=== PATIENT | female | born 1995 | race Caucasian/White ===

== ENCOUNTER 2017-11-03 22:05 | Outpatient (CLI) | payer OTHER ==
[2017-11-03 22:40] VITALS: BP 120/72
== END 2017-11-03 22:35 | disposition home or self-care (01) ==
LOC: WFO 22:05 → FBP 22:08 → WFO 22:35
PROVIDERS: ATTEND Obstetrics & Gynecology
DX: O21.9 Vomiting of pregnancy, unspecified (principal); Z3A.19 19 weeks gestation of pregnancy

== ENCOUNTER 2017-11-03 22:38 | Emergency (ER) | payer OTHER ==
[2017-11-03] MEDS ORDERED: ONDANSETRON ODT 4 MG TABLET TL STA (22:58)
[2017-11-03 23:02] LABS: GLUCOSE, URINE (UA) NEGATIVE (NEGATIVE); KETONES,URINE (UA) >=80 mg/dL (NEGATIVE); LEUKOCYTE ESTERASE, URINE NEGATIVE (NEGATIVE); NITRITE,URINE NEGATIVE (NEGATIVE); OCCULT BLOOD,URINE NEGATIVE (NEGATIVE); PH,URINE 5.5 PH (5.0-7.5); PROTEIN,URINE TRACE mg/dL (NEGATIVE); UROBILINOGEN,URINE 0.2 (NORMAL) E.U./dL (NORMAL)
[2017-11-03 23:04] LABS: CLARITY,URINE CLEAR (CLEAR)
[2017-11-03 23:05] LABS: BILIRUBIN,URINE NEGATIVE (NEGATIVE); ICTOTEST,URINE NEGATIVE
[2017-11-03] MEDS ORDERED: SODIUM CHLORIDE 0.9% 1,000 ML IV ONE (23:08)
[2017-11-03] MEDS ORDERED: ONDANSETRON 4 MG/2 ML VIAL IVP STA (23:08)
--- NOTE | 2017-11-03 23:08 | ED Physician Documentation ---
PD HPI FEMALE - Stated complaint Stated Complaint: NAUSEA/VOMITING - 20WK OB - Chief complaint Chief Complaint: Abd Pain - History obtained from History obtained from: Patient, Family - History of Present Illness Timing - onset: Yesterday Timing - details: Gradual onset, Still present Associated symptoms: Abdominal pain Contributing factors: Similar symptoms before: No diagnosis Recently seen: Not recently seen - Additional information Additional information: Patient is a 22 year old female approximately 19-20 weeks by dates who is presenting to the emergency department for vomiting and mild abdominal pain. patient states that it started yesterday and she has had a hard time keeping anything down. Patient denies any change in diet, sick contacts or recent travel. patient was originally sent to OB and had a normal HR. Review of Systems Constitutional: denies: Fever, Chills Eyes: reports: Reviewed and negative Ears: reports: Reviewed and negative Nose: reports: Reviewed and negative Throat: reports: Reviewed and negative GI: reports: Abdominal Pain, Nausea, Vomiting. denies: Constipation, Diarrhea : denies: Dysuria, Frequency, Hesitancy Skin: reports: Reviewed and negative Musculoskeletal: reports: Reviewed and negative Neurologic: reports: Reviewed and negative Psychiatric: reports: Reviewed and negative Endocrine: reports: Reviewed and negative Immunocompromised: denies: Immunocompromised PD PAST MEDICAL HISTORY - Present Medications Home Medications: Ambulatory Orders Medication Instructions Recorded Confirmed Ondansetron Odt [Zofran] 4 mg TL Q6H PRN #14 tablet 11/04/17 - Allergies Allergies/Adverse Reactions: Allergies Allergy/AdvReac Type Severity Reaction Status Date / Time No Known Drug Allergies Allergy Verified 11/03/17 23:18 PD ED PE NORMAL - Vitals Vital signs reviewed: Yes - General General: Alert and oriented X 3, No acute distress - HEENT HEENT: Atraumatic - Cardiac Cardiac: RRR - Respiratory Respiratory: No respiratory distress - Abdomen Abdomen: Other (gravid uterus palpated) - Derm Derm: Normal color, Warm and dry - Extremities Extremities: No deformity - Neuro Neuro: Alert and oriented X 3, No motor deficit Eye Opening: Spontaneous PD ED PE EXPANDED - HEENT HEENT: Dry mucous membranes Results - Vitals Vitals: Vital Signs - 24 hr 11/03/17 11/03/17 22:44 23:56 Temperature 36.5 C Heart Rate 92 86 Respiratory 16 18 Rate Blood Pressure 121/76 110/64 O2 Saturation 100 97 Oxygen O2 Source Room air - Labs Labs: Laboratory Tests 11/03/17 22:53 Urine Color YELLOW Urine Clarity CLEAR Urine pH 5.5 Ur Specific [place] >=1.030 H Urine Protein TRACE Urine Glucose (UA) NEGATIVE Urine Ketones >=80 H Urine Occult Blood NEGATIVE Urine Nitrite NEGATIVE Urine Bilirubin NEGATIVE Urine Urobilinogen 0.2 (NORMAL) Ur Leukocyte Esterase NEGATIVE Ur Microscopic Review NOT INDICATED Urine Culture Comments NOT INDICATED PD MEDICAL DECISION MAKING - ED course Complexity details: reviewed old records, reviewed results, re-evaluated patient , considered differential, d/w patient, d/w family ED course: Patient was seen and examined at bedside. patient's urine was collected and was positive for ketones. Patient was treated with zofran and fluid bolus. Patient was able to tolerate PO and was stable for discharge with outpatient follow up. Departure - Departure Disposition: 01 Home, Self Care Clinical Impression: Dehydration, Gastroenteritis Condition: Good Instructions: ED Gastroenteritis Non Infec Follow-Up: Robbin Wall ARNP [Primary Care Provider] - As Needed Prescriptions: Ondansetron Odt [Zofran] 4 mg TL Q6H PRN #14 tablet PRN Reason: Nausea / Vomiting Comments: Your symptoms today are likely being caused by gastroenteritis. It is normally self limited meaning it should get better in the next few days. You should take the zofran as needed for nausea and make sure you stay well hydrated. You should follow up with your doctor if your symptoms don't improve. You may return to the emergency department at any time for new, worsening or uncontrollable symptoms.
[2017-11-04] MEDS ORDERED: ONDANSETRON ODT 4 MG Prepack 2 TL PRN (00:10)
[2017-11-04 00:36] VITALS: BP 114/84
== END 2017-11-04 00:35 | disposition home or self-care (01) ==
LOC: ED 22:38
DX: O99.612 Diseases of the digestive system complicating pregnancy, second trimester (principal); K52.9 Noninfective gastroenteritis and colitis, unspecified; O99.282 Endocrine, nutritional and metabolic diseases complicating pregnancy, second trimester; E86.0 Dehydration; Z3A.19 19 weeks gestation of pregnancy
CPT/HCPCS: 81001; 81003; 87086; 96361; 96374; 99283; 99284

== ENCOUNTER 2018-03-29 19:28 | Inpatient (IN) | payer OTHER ==
[2018-03-29 20:34] LABS: RUPTURE OF MEMBRANES PLUS POSITIVE (NEGATIVE)
[2018-03-29] MEDS ORDERED: SODIUM CHLORIDE FLUSH 0.9% 10 ML SYRINGE IVP PRN (20:54)
[2018-03-29] MEDS: SODIUM CHLORIDE FLUSH 0.9% 10 ML SYRINGE IVP SCH (21:30)
[2018-03-29 21:51] LABS: BASOPHILS % (AUTO) 0.2 %; EOSINOPHILS # (AUTO) 0.1 10^3/uL (0.0-0.7); EOSINOPHILS % (AUTO) 0.3 %; HGB - HEMOGLOBIN 11.1 g/dL (12.0-16.0); LYMPHOCYTES # (AUTO) 2.3 10^3/uL (1.5-3.5); LYMPHOCYTES % (AUTO) 13.3 %; MEAN CORPUSCULAR HEMOGLOBIN 25.1 pg (27.0-31.0); MEAN CORPUSCULAR HGB CONC 33.1 g/dL (32.0-36.0); MEAN CORPUSCULAR VOLUME 75.9 fL (81.0-99.0); MONOCYTES # (AUTO) 1.4 10^3/uL (0.0-1.0); MONOCYTES % (AUTO) 8.3 %; NEUTROPHILS # (AUTO) 13.7 10^3/uL (1.5-6.6); NEUTROPHILS % (AUTO) 77.9 %; PLT - PLATELET COUNT 237 10^3/uL (130-450); RED BLOOD COUNT 4.44 10^6/uL (4.20-5.40); WHITE BLOOD COUNT 17.5 x10^3/uL (4.8-10.8)
--- NOTE | 2018-03-29 21:51 | HISTORY & PHYSICAL EXAMINATION ---
Admit History - Instructions [place]/Slash: -Left hand click circles element as positive or present. -Right hand click slashes element as negative or not present. - Visit Reason Visit Reason: Membranes rupture (Pt SROM @ 1900. develpoed mild contractions. Positive ROM +.) - : 1 Parity: 0 Premature: 0 Ectopic: 0 : 0 Care: positive: [place] Risk/History: positive: None Complications This : positive: None Smoking Status: Never smoker - Mother's Labs Mother's Blood Type: positive: O Mother's RH: positive: Positive - Other Maternal History Other Maternal History: pt is a 22 YO EDC 03/29/2018, 40.0 weeks EGA Pt stated her OB care at 13 weeks at [facility] had 13 visits. her ob coarse has been uneventful. Blood type O+, GBS , Rhubella [facility] is on divert. Med Hx 0 Sx 0 NKMA Meds PNV Habits neg Social to ADN. Pe PEREOM Heart RRwithout M Lungs clear Abdomin gravid Cx 1.2/50%/2/VTX DTR +1 no clonus IMP: 22 yo , 40.0 weeks SROM Isabella q2-3 min mild, reactive strip Plan will await strong contraction, will start pit if necessary Epidural prn Meds/Allgy - Home Medications Home Medications: Ambulatory Orders Medication Instructions Recorded Confirmed Ondansetron Odt [Zofran] 4 mg TL Q6H PRN #14 tablet 11/04/17 - Allergies Allergies/Adverse Reactions: Allergies Allergy/AdvReac Type Severity Reaction Status Date / Time No Known Drug Allergies Allergy Verified 11/03/17 23:18 Physical - Abdominal Exam Vital Signs: Temp Pulse Resp BP Pulse Ox 37.3 C 96 16 120/77 100 03/29/18 19:45 03/29/18 19:45 03/29/18 19:45 03/29/18 19:45 03/29/18 19:45
[2018-03-29] MEDS: LACTATED RINGERS 1,000 ML IV SCH (23:50)
[2018-03-30] MEDS ORDERED: PROMETHAZINE 25 MG/1 ML VIAL IM STA (01:03)
[2018-03-30] MEDS ORDERED: MORPHINE 10 MG/ML VIAL IM STA (01:03)
[2018-03-30] MEDS: LACTATED RINGERS 1,000 ML IV SCH ×3 (06:26→18:10)
[2018-03-30] MEDS ORDERED: fent/BUPIV 2 MCG/0.125% 250 ML EP ONE (08:27)
--- NOTE | 2018-03-30 08:28 | PROVIDER PROGRESS NOTE ---
Labor Progress Note - Uterine Monitoring Contraction Frequency (min/apart): 3-4 Contraction Intensity: positive: Moderate to strong Uterine Resting Tone: positive: Soft - Monitoring Monitor Mode: positive: External ultrasound Heart Rate Baseline: 150 Heart Rate Variability: positive: Moderate (6-25 bmp) Accelerations: positive: Present, 15x15 Decelerations: positive: Early Strip Review: positive: Category I - Vaginal Exam Dilation (in cm): 5 Effacement (%): 100% Station: -3 Cervical Position: Midposition - Labor Progress Note Labor Progress Note/Additional Text: Pt was rested with Morphine Strip Cat 1 Pt and brother weighed 9 and 10 lb FOB weighed 9 lb. Pt just informed us that she had an US for EFW Plan Epidural Pit EFW
[2018-03-30] MEDS: SODIUM CHLORIDE FLUSH 0.9% 10 ML SYRINGE IVP SCH (08:58)
[2018-03-30] MEDS ORDERED: NALOXONE 0.4 MG/ML VIAL IVP PRN (09:15)
[2018-03-30] MEDS ORDERED: fent/BUPIV 2 MCG/0.125% 250 ML EP PRN (09:15)
[2018-03-30] MEDS ORDERED: ePHEDrine 50 MG/ML VIAL IVP PRN (09:15)
[2018-03-30] MEDS ORDERED: diphenhydrAMINE INJ 50 MG/ML VIAL IVP PRN (09:15)
[2018-03-30] MEDS ORDERED: ONDANSETRON 4 MG/2 ML VIAL IVP PRN (09:15)
[2018-03-30] MEDS ORDERED: LACTATED RINGERS 500 ML IV ONE (09:15)
[2018-03-30] MEDS ORDERED: METOCLOPRAMIDE 10 MG/2 ML VIAL IVP PRN (09:15)
[2018-03-30] MEDS ORDERED: NALBUPHINE 10 MG/ML AMP IVP PRN (09:15)
--- NOTE | 2018-03-30 12:50 | PROVIDER PROGRESS NOTE ---
Labor Progress Note - Uterine Monitoring Uterine Monitoring Mode: positive: External toco Contraction Frequency (min/apart): 3-4 Contraction Intensity: positive: Strong Uterine Resting Tone: positive: Soft - Monitoring Monitor Mode: positive: External ultrasound Heart Rate Variability: positive: Moderate (6-25 bmp) Accelerations: positive: Present, 15x15 Decelerations: positive: None Strip Review: positive: Category I - Vaginal Exam Dilation (in cm): 7 cm Effacement (%): 100% Station: Ballotable Cervical Position: Midposition (head is -4 vertex, bulging forbag. arenas drained 50 ml.) - Labor Progress Note Labor Progress Note/Additional Text: US from 03/24/2018 EFW 8lb 12 oz. Cervix dilating but head not descending. reviewed strip, Exam, US with Pt and family. will start pitocin. Cannot rupture as head is to high.
[2018-03-30] MEDS: OXYTOCIN/SODIUM CHLORIDE 500 ML IV SCH (13:17)
[2018-03-30] MEDS ORDERED: LIDOCAINE-MPF 1% 5 ML VIAL ONE (15:01)
--- NOTE | 2018-03-30 16:39 | PROVIDER PROGRESS NOTE ---
Labor Progress Note - Uterine Monitoring Uterine Monitoring Mode: positive: External toco Contraction Frequency (min/apart): 3 Contraction Intensity: positive: Strong Uterine Resting Tone: positive: Soft - Monitoring Monitor Mode: positive: External ultrasound Heart Rate Baseline: 130's Heart Rate Variability: positive: Moderate (6-25 bmp) Accelerations: positive: Present, 15x15 Decelerations: positive: None Strip Review: positive: Category I - Vaginal Exam Dilation (in cm): 8 Effacement (%): 100% Station: Ballotable (-4) Cervical Position: Midposition - Labor Progress Note Labor Progress Note/Additional Text: Pt SROM during Exam. Head still not descending possible contracted inlet vs PO vs Macrosomia reassess at 1800
[2018-03-30] MEDS ORDERED: CITRIC ACID/SODIUM CITRATE 15 ML UDC PO ONE (18:13)
--- NOTE | 2018-03-30 18:42 | PROVIDER PROGRESS NOTE ---
Labor Progress Note - Uterine Monitoring Uterine Monitoring Mode: positive: External toco Contraction Frequency (min/apart): 2 Contraction Intensity: positive: Strong - Monitoring Monitor Mode: positive: External ultrasound Heart Rate Baseline: 135 Heart Rate Variability: positive: Moderate (6-25 bmp) Accelerations: positive: Present, 15x15 Decelerations: positive: None Strip Review: positive: Category I - Vaginal Exam Dilation (in cm): 8 Effacement (%): 100% Station: Ballotable (Head not decended in the the inlet-4) Cervical Position: Posterior - Labor Progress Note Labor Progress Note/Additional Text: Head has not descended at all. will proceed with PLTC/S R&B QAA.
[2018-03-30] MEDS ORDERED: LACTATED RINGERS 1,000 ML IV ONE ×3 (19:08→20:23)
[2018-03-30] MEDS ORDERED: LIDOCAINE 1%-EPI 1:100000 30 ML MDV ONE (19:38)
[2018-03-30] MEDS ORDERED: METHYLERGONOVINE 0.2 MG/ML AMP IM ONE (19:55)
[2018-03-30] MEDS ORDERED: ceFAZolin 1 GM VIAL IV ONE (20:45)
[2018-03-30] MEDS ORDERED: PROPOFOL 200 MG/20 ML VIAL IVP ONE (20:45)
[2018-03-30] MEDS ORDERED: LIDOCAINE-MPF 2% 5 ML VIAL IM ONE (20:45)
[2018-03-30] MEDS ORDERED: ePHEDrine 50 MG/ML VIAL IVP ONE (20:45)
[2018-03-30] MEDS ORDERED: ACETAMINOPHEN 1,000 MG/100 ML 100 ML IV ONE (20:45)
[2018-03-30] MEDS ORDERED: KETOROLAC 30 MG/ML VIAL IVP ONE (20:45)
[2018-03-30] MEDS ORDERED: PHENYLEPHRINE 50 MG/5 ML VIAL IV ONE (20:45)
[2018-03-30] MEDS ORDERED: KETAMINE 500 MG/10 ML VIAL IVP ONE (20:45)
--- NOTE | 2018-03-30 21:05 | OPERATIVE REPORT ---
Operative Report - General Admit Date: 03/29/18 Procedure Date: 03/30/18 Planned Procedure: PLTC/S Pre-Op Diagnosis: 40.1 wks, Arrest of descent Procedure Performed: PLTC/S Post Op Diagnosis: LOP, Arrest of Descent - Procedure Note Primary Surgeon: Shahbaz Hernandez MD Secondary Surgeon: Audelia Osman Anesthesia Provider: Bola Eaton CRNA Anesthesia Technique: Epidural, Local, Moderate sedation Pathology: Placenta IV Fluids (mL): 2,000 Estimated Blood Loss (mL): 1,600
--- NOTE | 2018-03-30 21:10 | DELIVERY NOTE ---
Delivery Note - Labor Labor: positive: Spontaneous, Augmented by oxytocin - Delivery Method Infant Delivery Method: positive: Primary - Presentation Presentation: positive: Vertex, LOP - left occiput posterior - Nuchal Cord Nuchal Cord: positive: Present (nucal times 1) - Anesthetic Anesthetic Type: - Amniotic Fluid Description Amniotic Fluid Description: positive: Thick meconium - Delivery Outcome Delivery Outcome: positive: Livebirth - [place]: positive: Bulb syringe sex: positive: Female - Cord Cord: positive: 3 vessels - Placenta Placenta: positive: Intact, Manual removal - Estimated Blood Loss Estimated Blood Loss (in cc): 1,600 - Post Delivery Events Post Delivery Events: positive: Unplanned - Delivery Comments (Free Text/Narrative) Delivery Comments (Free Text/Narrative): Live Female, wt 9lb 8oz, LOP Apgars 9/9
[2018-03-30] MEDS ORDERED: SODIUM CHLORIDE FLUSH 0.9% 10 ML SYRINGE IVP PRN (21:18)
[2018-03-30] MEDS ORDERED: diphenhydrAMINE 25 MG CAPSULE PO PRN (21:18)
[2018-03-30] MEDS ORDERED: METHYLERGONOVINE 0.2 MG/ML AMP PO SCH (22:00)
[2018-03-30] MEDS: oxyCODONE 5 MG TABLET PO PRN (22:06)
[2018-03-31 00:01] LABS: BASOPHILS # (AUTO) 0.1 10^3/uL (0.0-0.1); BASOPHILS % (AUTO) 0.5 %; HGB - HEMOGLOBIN 9.1 g/dL (12.0-16.0); LYMPHOCYTES % (AUTO) 5.8 %; MEAN CORPUSCULAR HEMOGLOBIN 24.9 pg (27.0-31.0); MEAN CORPUSCULAR HGB CONC 32.5 g/dL (32.0-36.0); MEAN CORPUSCULAR VOLUME 76.4 fL (81.0-99.0); MEAN PLATELET VOLUME 8.7 fL (7.9-10.8); MONOCYTES # (AUTO) 0.7 10^3/uL (0.0-1.0); MONOCYTES % (AUTO) 3.7 %; NEUTROPHILS # (AUTO) 16.3 10^3/uL (1.5-6.6); PLT - PLATELET COUNT 185 10^3/uL (130-450); RED BLOOD COUNT 3.67 10^6/uL (4.20-5.40); RED CELL DISTRIBUTION WIDTH 15.3 % (12.0-15.0); WHITE BLOOD COUNT 18.1 x10^3/uL (4.8-10.8)
[2018-03-31] MEDS: SODIUM CHLORIDE FLUSH 0.9% 10 ML SYRINGE IVP SCH ×7 (01:03→17:05)
[2018-03-31] MEDS: ACETAMINOPHEN 500 MG TABLET PO SCH ×3 (01:03→12:36)
[2018-03-31] MEDS: KETOROLAC 30 MG/ML VIAL IV SCH ×3 (01:03→10:39)
[2018-03-31] MEDS: LACTATED RINGERS 1,000 ML IV SCH ×2 (01:04→08:36)
[2018-03-31] MEDS: SIMETHICONE CHEW 80 MG TABLET PO SCH ×4 (01:04→17:05)
--- NOTE | 2018-03-31 01:47 | OPERATIVE REPORT ---
DATE OF SERVICE: 03/30/2018 Physician: Shahbaz Hernandez MD PREOPERATIVE DIAGNOSES 1. 40.1 weeks. 2. Arrest of descent. 3. Suspected macrosomia. POSTOPERATIVE DIAGNOSES 1. 40.1 weeks. 2. Persistent left occiput posterior. 3. Live female infant, weight 9 pounds 8 ounces, Apgars 9 and 9. PROCEDURE PERFORMED: Primary low transverse section. SURGEON: Shahbaz Hernandez MD SCIENTIFIC MANAGER: Audelia Mccollum, certified nurse seo team lead. ANESTHESIA: Epidural with local by Bola Eaton CRNA. ESTIMATED BLOOD LOSS: 1600 mL. IV FLUIDS: 1200 mL. FINDINGS: Live female , Apgars 9 and 9, weighing 9 pounds 8 ounces, thick meconium fluid. DESCRIPTION OF PROCEDURE: Following adequate epidural anesthesia, the patient was placed in the supine position with a roll under the right hip. At that point, she was having some difficulty with analgesia. For that reason, she was set up and was planned to attempt a spinal; however, she became lightheaded and at that point, it appeared as though her epidural was working better. She was placed in a supine position with a roll under the right hip. A Riddle catheter had already been placed. Timeout was performed in which the patient was identified as well as concerns reviewed. Local anesthesia with 1% Xylocaine with a 25-gauge needle was used along the incision track. At this point, a #10 blade was used to incise the incision and a Pfannenstiel incision was carried down through the subcutaneous tissue. The fascia was incised transversely and the incision was carried laterally with Scott scissors. The rectus was then split along the midline. Peritoneum was entered with Metzenbaum scissors. The incision was carried superiorly and inferiorly. A bladder retractor was placed and then the peritoneum was opened with Metzenbaum scissors. Care was taken to stay high enough as to avoid the cervical area. The uterus was scored with a #10 blade and then amniotic fluid was encountered. Roughly 1000 mL was sucked at this time. Bandage scissors were used to carry the incision laterally. At this point, the head was lifted out of the pelvis. There was evidence of a nuchal cord, which was reduced. The oral and nasopharynx were bulb suctioned. Following this, the remainder of the was delivered without difficulty. The cord was clamped doubly and then divided using Scott scissors. Baby was handed to the record press supervisor that was standing by. Cord blood samples were obtained. At this point, the placenta was manually delivered. The lower portion of the incision was grasped with ring forceps. There was some bleeding coming from the right side of the incision where the incision appeared to hockey stick down. The placenta was manually delivered and then the uterus was exteriorized , wrapped in a moist lap and cleansed in the internal portion with a dry lap. The incision was closed utilizing a running locking suture of 0 Vicryl. The incision was then imbricated with 0 Vicryl. There was some bleeding at the incision site. This was treated with [id number]. There was some difficulty with atony, so the patient received 0.2 mg of Methergine IM. The cul -de-sac was irrigated. There was some difficulty with pain control, so Anesthesia gave the patient ketamine. The uterus was delivered back in the abdominal cavity. The gutters were irrigated. The incision was inspected for bleeding, none was noted. The peritoneum was closed utilizing 2-0 Vicryl. The rectus fascia was closed using looped PDS in a running suture. The muscle was previously inspected for bleeding, none was noted. Subcutaneous tissue showed no bleeding, so the incision itself was closed using 4-0 Monocryl subcuticular. A wound VAC was then placed over this. The area appeared to be dry. The uterus was expressed of roughly 400 mL of blood, and the blood loss was then calculated roughly 1600 mL. Amniotic fluid was also subtracted to get a more accurate count. The patient tolerated the procedure well and was taken to recovery in stable condition. Sponge and needle counts were correct. TD: 03/30/2018 21:27 MTDD
[2018-03-31] MEDS ORDERED: METHYLERGONOVINE 0.2 MG/ML AMP IM SCH (04:00)
[2018-03-31 06:59] LABS: HGB - HEMOGLOBIN 8.8 g/dL (12.0-16.0); MEAN CORPUSCULAR HEMOGLOBIN 25.1 pg (27.0-31.0); MEAN CORPUSCULAR HGB CONC 32.8 g/dL (32.0-36.0); MEAN CORPUSCULAR VOLUME 76.4 fL (81.0-99.0); MEAN PLATELET VOLUME 9.1 fL (7.9-10.8); RED BLOOD COUNT 3.49 10^6/uL (4.20-5.40); RED CELL DISTRIBUTION WIDTH 15.2 % (12.0-15.0); WHITE BLOOD COUNT 16.5 x10^3/uL (4.8-10.8)
--- NOTE | 2018-03-31 08:41 | PROVIDER PROGRESS NOTE ---
Subjective - General Admit Date: 03/29/18 Procedure Date: 03/30/18 Post Op Days: 1 Procedure Performed: PLTC/S - Review of Systems Wound/Incisions: positive: Other (WoundVac working) General: positive: No symptoms (Pain 7/10, brest feeding, no flatus) HEENT: positive: No symptoms Pulmonary: positive: No symptoms Cardiovascular: positive: No symptoms Gastrointestinal: positive: No symptoms. negative: Nausea, Vomiting, Flatus Genitourinary: positive: No symptoms (arenas draining) Objective - Patient Data Reviewed Vital Signs: Yes Vital Signs: Vital Signs x48h Temp Pulse Resp BP Pulse Ox 03/31/18 08:30 36.8 C 82 19 114/74 99 03/31/18 04:24 36.8 C 84 16 108/72 98 Weight: Weight 03/29/18 03/30/18 03/31/18 23:59 23:59 23:59 Weight (kg) 95.254 kg Intake & Output: Intake and Output Totals x24h 03/29/18 03/30/18 03/31/18 23:59 23:59 23:59 Intake Total 2375.3 1244.7 Output Total 200 2825 Balance 2175.3 -1580.3 - Lab Results Lab Results: 03/31/18 06:10 Other Lab Results: Lab Results x24hrs 03/31/18 03/30/18 03/29/18 Range/Units 06:10 23:54 22:30 WBC 16.5 H 18.1 H (4.8-10.8) x10^3/uL RBC 3.49 L 3.67 L (4.20-5.40) 10^6/uL Hgb 8.8 L 9.1 L (12.0-16.0) g/dL Hct 26.7 L 28.0 L (37.0-47.0) % MCV 76.4 L 76.4 L (81.0-99.0) fL MCH 25.1 L 24.9 L (27.0-31.0) pg MCHC 32.8 32.5 (32.0-36.0) g/dL RDW 15.2 H 15.3 H (12.0-15.0) % Plt Count 183 185 (130-450) 10^3/uL MPV 9.1 8.7 (7.9-10.8) fL Neut # (Auto) 16.3 H (1.5-6.6) 10^3/uL Lymph # (Auto) 1.0 L (1.5-3.5) 10^3/uL [place] # (Auto) 0.7 (0.0-1.0) 10^3/uL Eos # (Auto) 0.0 (0.0-0.7) 10^3/uL Baso # (Auto) 0.1 (0.0-0.1) 10^3/uL Absolute Nucleated RBC 0.00 x10^3/uL Nucleated RBC % 0.0 /100WBC Blood Type Blood Type Recheck O POSITIVE Antibody Screen Crossmatch IS Only 03/29/18 Range/Units 21:48 WBC (4.8-10.8) x10^3/uL RBC (4.20-5.40) 10^6/uL Hgb (12.0-16.0) g/dL Hct (37.0-47.0) % MCV (81.0-99.0) fL MCH (27.0-31.0) pg MCHC (32.0-36.0) g/dL RDW (12.0-15.0) % Plt Count (130-450) 10^3/uL MPV (7.9-10.8) fL Neut # (Auto) (1.5-6.6) 10^3/uL Lymph # (Auto) (1.5-3.5) 10^3/uL [place] # (Auto) (0.0-1.0) 10^3/uL Eos # (Auto) (0.0-0.7) 10^3/uL Baso # (Auto) (0.0-0.1) 10^3/uL Absolute Nucleated RBC x10^3/uL Nucleated RBC % /100WBC Blood Type O POSITIVE Blood Type Recheck Antibody Screen NEGATIVE Crossmatch IS Only See Detail - Current Medications Current Medications: Current Medications Generic Name Dose Route Start Last Admin Trade Name Freq PRN Reason Stop Dose Admin Acetaminophen 1,000 mg 03/30/18 22:00 03/31/18 04:27 Tylenol PO 1,000 mg Q8H SERENITY Administration Oxytocin/Sodium Chloride 500 mls @ 1 mls/hr 03/30/18 13:00 03/31/18 04:52 Pitocin/Sodium Chloride IV Infused TITR [facility] Titration Protocol 1 MILLIUNIT/MIN Lactated Ringer's 1,000 mls @ 100 mls/hr 03/30/18 22:00 03/31/18 08:36 Lr IV Not Given .Q10H SERENITY Ketorolac Tromethamine 30 mg 03/30/18 22:00 03/31/18 04:26 Toradol Inj (30mg) IV 03/31/18 16:01 30 mg Q6H SERENITY Administration Methylergonovine Maleate 0.2 mg 03/31/18 04:00 03/31/18 04:26 Methergine Inj IM 03/31/18 20:01 0.2 mg Q8H SERENITY Administration Oxycodone HCl 5 mg 03/30/18 21:18 03/30/18 22:06 Roxicodone PO 5 mg Q4HR PRN Administration PAIN Simethicone 80 mg 03/30/18 22:00 03/31/18 01:04 Mylicon PO Not Given TID SERENITY Sodium Chloride 10 ml 03/30/18 01:00 03/31/18 08:36 Normal Saline Flush 0.9% IVP Not Given 0100,0900,1700 SERENITY Sodium Chloride 10 ml 03/31/18 01:00 03/31/18 08:36 Normal Saline Flush 0.9% IVP Not Given 0100,0900,1700 [facility] - Physical Exam Wound/Incisions: positive: Dressing dry and intact (wound vac functioning) General Appearance: positive: No acute distress (smiling), Alert Respiratory: positive: Chest non-tender, No respiratory distress, Breath sounds nml Cardiovascular: positive: Regular rate & rhythm, No murmur, No gallop Abdomen: positive: Nml bowel sounds, Tenderness, Mass (u.) Back: negative: CVA tenderness (R), CVA tenderness (L) Skin: positive: Color nml, No rash, Warm, Dry Extremities: negative: Calf tenderness, Gwen's sign/cords Neurologic/Psychiatric: positive: Oriented x3, CN's nml (2-12) Impression/Plan - Problem List Problem List: POD # 1 progressing. pain management pt not taking her oxycodone Remove arenas pt encouraged to take her oxy.
[2018-03-31] MEDS: DOCUSATE SODIUM 100 MG CAPSULE PO SCH ×2 (08:43→20:36)
[2018-03-31] MEDS: oxyCODONE 5 MG TABLET PO PRN ×4 (08:43→20:36)
[2018-03-31] MEDS ORDERED: CELECOXIB 100 MG CAPSULE PO SCH (09:00)
--- NOTE | 2018-03-31 12:24 | PROVIDER PROGRESS NOTE ---
Subjective - Prog Note Date Prog Note Date: 03/31/18 Prog Note Time: 12:20 - Subjective Pt reports feeling: Improved Subjective: Sitting in the chair, eating regular diet. holding baby on the couch. Feeling much better after taking oxycodone. No nausea or vomiting. Wound vac working well. Objective - Vital Signs/Intake & Output Reviewed Vital Signs: Yes Vital Signs: Vital Signs x48h Temp Pulse Resp BP Pulse Ox 03/31/18 08:30 98.2 F 82 19 114/74 99 03/31/18 04:24 98.2 F 84 16 108/72 98 Intake & Output: Intake & Output 03/28/18 03/29/18 03/30/18 03/31/18 23:59 23:59 23:59 23:59 Intake Total 2375.3 1244.7 Output Total 200 3275 Balance 2175.3 -2030.3 - Objective General Appearance: positive: No acute distress Eyes Bilateral: positive: Normal inspection Neurologic/Psychiatric: positive: Oriented x3 - Lab Results Fish Bones: 03/31/18 06:10 Other Labs: Lab Results x24hrs 03/31/18 03/30/18 03/29/18 Range/Units 06:10 23:54 22:30 WBC 16.5 H 18.1 H (4.8-10.8) x10^3/uL RBC 3.49 L 3.67 L (4.20-5.40) 10^6/uL Hgb 8.8 L 9.1 L (12.0-16.0) g/dL Hct 26.7 L 28.0 L (37.0-47.0) % MCV 76.4 L 76.4 L (81.0-99.0) fL MCH 25.1 L 24.9 L (27.0-31.0) pg MCHC 32.8 32.5 (32.0-36.0) g/dL RDW 15.2 H 15.3 H (12.0-15.0) % Plt Count 183 185 (130-450) 10^3/uL MPV 9.1 8.7 (7.9-10.8) fL Neut # (Auto) 16.3 H (1.5-6.6) 10^3/uL Lymph # (Auto) 1.0 L (1.5-3.5) 10^3/uL [place] # (Auto) 0.7 (0.0-1.0) 10^3/uL Eos # (Auto) 0.0 (0.0-0.7) 10^3/uL Baso # (Auto) 0.1 (0.0-0.1) 10^3/uL Absolute Nucleated RBC 0.00 x10^3/uL Nucleated RBC % 0.0 /100WBC Blood Type Blood Type Recheck O POSITIVE Antibody Screen Crossmatch IS Only 03/29/18 Range/Units 21:48 WBC (4.8-10.8) x10^3/uL RBC (4.20-5.40) 10^6/uL Hgb (12.0-16.0) g/dL Hct (37.0-47.0) % MCV (81.0-99.0) fL MCH (27.0-31.0) pg MCHC (32.0-36.0) g/dL RDW (12.0-15.0) % Plt Count (130-450) 10^3/uL MPV (7.9-10.8) fL Neut # (Auto) (1.5-6.6) 10^3/uL Lymph # (Auto) (1.5-3.5) 10^3/uL [place] # (Auto) (0.0-1.0) 10^3/uL Eos # (Auto) (0.0-0.7) 10^3/uL Baso # (Auto) (0.0-0.1) 10^3/uL Absolute Nucleated RBC x10^3/uL Nucleated RBC % /100WBC Blood Type O POSITIVE Blood Type Recheck Antibody Screen NEGATIVE Crossmatch IS Only See Detail Assessment/Plan - Problem List (1) delivery delivered Impression: 22 yo S/p primary delivery 03/30/2018, POD #1 Improved pain control S/p primary PPH due to uterine atony, resolved Will convert IV toradol to Celebrex to maximize pain control and healing IV iron transfusion Routine care Hopefully home tomorrow, or Tuesday at the latest
[2018-03-31] MEDS: CHERRY SYRUP 10 ML UDC PO SCH ×2 (12:35→20:36)
[2018-03-31] MEDS: METHYLERGONOVINE 0.2 MG/ML AMP PO SCH ×2 (12:35→20:36)
[2018-03-31] MEDS ORDERED: FERRIC GLUCONATE 125 MG in SODIUM CHLORIDE 0.9% 100ML 100 ML IV ONE (13:00)
[2018-03-31] MEDS ORDERED: SODIUM CHLORIDE 0.9% MINIBAG 100 ML IV ONE (13:44)
[2018-03-31] MEDS: OXYTOCIN/SODIUM CHLORIDE 500 ML IV SCH (16:36)
[2018-03-31] MEDS: CELECOXIB 100 MG CAPSULE PO SCH ×2 (17:04→20:35)
[2018-04-01] MEDS: ACETAMINOPHEN 500 MG TABLET PO SCH ×3 (02:20→18:03)
[2018-04-01] MEDS: oxyCODONE 5 MG TABLET PO PRN ×3 (02:21→21:05)
[2018-04-01] MEDS: DOCUSATE SODIUM 100 MG CAPSULE PO SCH ×2 (08:47→21:06)
[2018-04-01] MEDS: CELECOXIB 100 MG CAPSULE PO SCH ×2 (08:47→21:06)
[2018-04-01] MEDS: SIMETHICONE CHEW 80 MG TABLET PO SCH ×3 (08:47→18:03)
--- NOTE | 2018-04-01 13:57 | PROVIDER PROGRESS NOTE ---
Subjective - Prog Note Date Prog Note Date: 04/01/18 Prog Note Time: 13:55 - Subjective Pt reports feeling: Improved Subjective: Patient standing and changing the baby's diaper. Family and present in the room; all very loving and excited. Shira has pain in her epidural site. Otherwise doing well and denies fevers, chills, nausea, vomiting or abdominal pain. Eating a regular diet. Urinating without difficulty. Desires to go home tomorrow. Wound vac not beeping and working well. Objective - Vital Signs/Intake & Output Vital Signs: Vital Signs x48h Temp Pulse Resp BP Pulse Ox 04/01/18 12:45 98.2 F 86 16 112/72 99 04/01/18 08:00 98.1 F 86 16 110/73 99 Intake & Output: Intake & Output 03/29/18 03/30/18 03/31/18 04/01/18 23:59 23:59 23:59 23:59 Intake Total 2375.3 1354.7 Output Total 200 4525 600 Balance 2175.3 -3170.3 -600 - Objective General Appearance: positive: No acute distress Eyes Bilateral: positive: Normal inspection Abdomen: positive: Non-tender (Wound vac intact and working well) Neurologic/Psychiatric: positive: Oriented x3 - Lab Results Fish Bones: 03/31/18 06:10 Assessment/Plan - Problem List (1) delivery delivered Impression: 22 yo S/p CD 03/30/2018, POD#2 Normal recovery PPH secondary to atony, S/p iron transfusion 03/31/2018. Pain from epidural site-- continue Celebrex and tylenol. PRN muscle relaxant. Anticipate discharge to home tomorrow. Rx for motrin, colace, acetaminophen and oxycodone for home care. Discharge summary dictated: [id number]
[2018-04-01] MEDS: BACLOFEN 10 MG TABLET PO SCH (21:56)
[2018-04-02] MEDS: ACETAMINOPHEN 500 MG TABLET PO SCH (02:56)
--- NOTE | 2018-04-02 07:53 | DISCHARGE SUMMARY ---
Physician: Polly Christy DO FACOG DATE OF ADMISSION: 03/29/2018 DATE OF DISCHARGE: 04/02/2018 DIAGNOSES ON ADMISSION 1. A 22-year-old G1, P0 with a 40-week 0-day intrauterine . 2. Spontaneous rupture of membranes. DIAGNOSES ON DISCHARGE 1. A 22-year-old G1, P1-0-0-1, status post primary delivery on 2017 secondary to failure to descend secondary to left occiput posterior presentation. 2. Status post hemorrhage secondary to uterine atony. 3. Status post iron transfusion 03/31/2018. 4. Stable condition. BRIEF HISTORY: The patient is a patient of [facility] who has had her care there. She presented with complaints of spontaneous rupture of membranes about 1900 hours. [facility] was on divert, so patient presented to [facility]. On examination, patient was found to be ruptured, with a cervical examination of 1-2 cm dilation, 50% effacement, and -2 station. She was maria eugenia every 2-3 minutes but eventually needed Pitocin for augmentation. The patient later received an epidural for pain control. Despite adequate labor, patient's baby did not descend into the inlet at -4 station. Her dilation at that point in time was 8 cm, and effacement was 100%. The patient underwent a primary delivery and had a viable female weighing 9 pounds 8 ounces and Apgars of 9 and 9 at one and five minutes , respectively. She was in LOP presentation. EBL was 1600 mL. Please see the operative report for more details. The patient's postoperative course was significant for a drop in her H and H. Her admission CBC revealed a white count of 17.5, H and H of 11.1 and 33.7, and platelets of 237. On 03/30/2018, CBC on the same day after surgery showed a white count of 18.1, H and H of 9.1 and 28.0, platelets of 185. Postoperative day #1 H and H on 03/31/2018 showed a white count of 16.5, H and H of 8.8 and 26.7, and platelets of 183. The patient then received an iron transfusion to help with her iron deficiency anemia. Her MCV was decreased at 75-76. The patient otherwise did well after her delivery. She is ambulating and tolerating a regular diet. She is urinating without difficulty, and her pain is controlled with oral medications including Celebrex, Tylenol, and oxycodone. The patient is experiencing a little bit of back pain secondary to the epidural. Her wound VAC is intact and working well. She will be discharged to home on postoperative day 3, on 04/02/2018. The patient will be discharged to home with prescriptions for Colace, Tylenol, Motrin, and oxycodone. She will be expected to follow up with us at [facility] next week for removal of her wound VAC and then in another week for incision checkup. The patient is to call should she have any worsening fevers, chills, abdominal pain, or worsening vaginal bleeding. TD: 04/01/2018 14:17 MTDViet
[2018-04-02] MEDS: DOCUSATE SODIUM 100 MG CAPSULE PO SCH (09:36)
[2018-04-02] MEDS: BACLOFEN 10 MG TABLET PO SCH (09:36)
[2018-04-02] MEDS: SIMETHICONE CHEW 80 MG TABLET PO SCH (09:36)
[2018-04-02] MEDS: CELECOXIB 100 MG CAPSULE PO SCH (09:36)
[2018-04-02] MEDS: oxyCODONE 5 MG TABLET PO PRN (09:51)
--- NOTE | 2018-04-02 10:53 | PROVIDER PROGRESS NOTE ---
Subjective - Prog Note Date Prog Note Date: 04/02/18 Prog Note Time: 10:50 - Subjective Pt reports feeling: Improved Subjective: Patient doing well. Ambulating and tolerating a regular diet. Decreasing vaginal bleeding and urinating without difficulty. Breast feeding going well. Desires to go home. Objective - Vital Signs/Intake & Output Reviewed Vital Signs: Yes Vital Signs: Vital Signs x48h Temp Pulse Resp BP BP Pulse Ox 04/02/18 08:10 97.9 F 82 19 112/67 97 04/02/18 04:55 97.9 F 77 16 109/68 100 Intake & Output: Intake & Output 03/30/18 03/31/18 04/01/18 04/02/18 23:59 23:59 23:59 23:59 Intake Total 2375.3 1354.7 140 600 Output Total 200 4525 600 1 Balance 2175.3 -3170.3 -460 599 - Objective General Appearance: positive: No acute distress Eyes Bilateral: positive: Normal inspection Abdomen: positive: Non-tender (Wound vac intact and working well.) Extremities: positive: Non-tender Neurologic/Psychiatric: positive: Oriented x3 - Lab Results Fish Bones: 03/31/18 06:10 Other Labs: Lab Results x24hrs 03/29/18 Range/Units 21:48 Crossmatch IS Only See Detail Assessment/Plan - Problem List (1) delivery delivered Impression: 22 yo S/p primary CD, POD #3 Normal recovery Iron deficiency anemia and PPH, S/p iron transfusion Discharge to home Follow up next week for Prevena wound vac removal Rx for motrin, tylenol, colace and oxycodone OK for showering but no baths Increase ambulation as tolerated Call for worsening fevers, chills, abdominal pain or vaginal bleeding Discharge Plan Disposition: 01 Home, Self Care Condition: Good Diet: Regular Activity Restrictions: Activity as Tolerated (No lifting > 10 lbs) Shower Restrictions: Yes Driving Restrictions: Yes (No driving) Weight Bearing: Full Weight No Smoking: If you smoke, Please STOP! Call for help. Follow-up with: Robbin Wall ARNP [Primary Care Provider] -
[2018-04-02 11:35] VITALS: BP 126/78
--- NOTE | 2018-04-02 14:53 | Labor Flowsheet ---
Labor Flowsheet Datetime Report Generated by CPN: 04/02/2018 14:53 Datetime: 03/30/2018 19:03 UTERINE ACTIVITY Monitor Mode: External Frequency (min): 2-3 Quality: Strong Duration (sec): 30-60 Pattern: Normal: <= 5 Contractions in 10 Minutes Resting Tone (Palpate): Relaxed ASSESSMENT A Monitor Mode: External US FHR Baseline Rate : 140 FHR Baseline Changes: No Baseline Change Variability: Moderate 6-25 bpm Accelerations: 15X15 Decelerations: None Category: Category I Oxygen Method: Room Air Patient Care Comments: pt to OR for Primary . Datetime: 03/30/2018 18:59 VITAL SIGNS NBP Sys/Becca/Mean (mmHg): 133 : 87 : 97 Pulse: 97 LaborFlag: Labor Datetime: 03/30/2018 18:54 SpO2 (%): 100 Datetime: 03/30/2018 18:45 Respirations: 15 Temperature (C): 36.8 Datetime: 03/30/2018 18:37 Hygiene: Peripad Changed Datetime: 03/30/2018 18:35 Anesthesia Comments: addy into see pt prior to c section Datetime: 03/30/2018 18:13 Communication Comments: c section called. Datetime: 03/30/2018 18:09 COMMUNICATION Communication: Provider at Bedside Datetime: 03/30/2018 18:06 VAGINAL EXAM Dilatation (cm): 8.0 Effacement (%): 100 Station: -4 Exam by: dr giem Datetime: 03/30/2018 17:46 Comments: min to mod Datetime: 03/30/2018 17:30 Pain Coping: Sleeping Datetime: 03/30/2018 17:19 PATIENT CARE IV/Blood Work: IV Infusing per Order Datetime: 03/30/2018 16:30 Contraction Comments: off and on vaginal pressure Datetime: 03/30/2018 16:02 Monitor Interventions for FHR: Ultrasound Adjusted Datetime: 03/30/2018 16:00 Membranes Rupture Method: Spontaneous Amniotic Fluid Color: Heavy Meconium Amniotic Fluid Amount: Large Vaginal Bleeding: None Cervix, Consistency: Soft Cervix, Position: Midposition Membrane Comments: srom with VE Datetime: 03/30/2018 15:30 Anesthesia Level Check: T10- Umbilicus Datetime: 03/30/2018 15:08 Epidural Procedure Other: Single Dose Datetime: 03/30/2018 15:07 Epidural Procedure: Test Dose Datetime: 03/30/2018 14:45 Epidural Positioning: Sitting Datetime: 03/30/2018 14:33 PAIN Pain Scale: 7 Datetime: 03/30/2018 13:18 MEDICATIONS Pitocin (milliunits): Started @ 1 Datetime: 03/30/2018 13:15 Pain Assessment Comments: pain increasing. request more epidural. addy called and will be into judy luate pt Datetime: 03/30/2018 13:01 Pitocin Checklist: At Least 1 Acceleration of 15 bpm x 15 Seconds in 30 Minutes or Adequate Variabi lity; No More than 1 Late Deceleration Occurred in Past 30 Minutes; No More than 2 Variable Decelerat ions > 60 Seconds in Duration and decreasing >60 bpm in 30 minutes; No More than 5 Uterine Contractio ns in 10 Minutes for any 20 Minute Interval; Uterus Palpates Soft between Contractions Datetime: 03/30/2018 12:14 I/O Interventions: Riddle Cath Inserted Datetime: 03/30/2018 11:01 Pain Type: Cramping Datetime: 03/30/2018 10:38 Patient Position/Activity: High Fowlers Datetime: 03/30/2018 09:05 Magnesium/Antihypertensives: Ephedrine IV (mg) @ 10 Medication Comments: given by addy harper for decrease in BP Datetime: 03/30/2018 08:33 PROCEDURE TIME OUT Procedure Verify: Correct Patient Identity; Agreement on Procedure to be Done; Correct Patient Posi tion; Addressed Need to Administer Antibiotics or Fluids for Irrigation; Safety Precautions Based on Patient History or Medication Use ANESTHESIA Anesthesia Plans: Epidural Datetime: 03/30/2018 07:36 Stage of : Labor Temperature Route: Oral Datetime: 03/30/2018 06:29 Pain Presence: Intermittent Pain Location: Abdomen; Back Datetime: 03/30/2018 02:32 Monitor Interventions for UA: [place] Adjusted Datetime: 03/30/2018 01:31 Pain Relief Measures: Pain Medication Given Datetime: 03/30/2018 01:20 Analgesics/Sedatives: Morphine Sulfate (mg) @ 10; Phenergan (mg) @ 25
== END 2018-04-02 11:15 | disposition home or self-care (01) | DRG 765 ==
LOC: WFO 19:28 → FBP 19:29 → WFO 20:53 → FBP 20:54
PROVIDERS: ADMIT Obstetrics & Gynecology; ATTEND Obstetrics & Gynecology
PROC: 10D00Z1 Extraction of Products of Conception, Low, Open Approach (ICD-10-PCS; 2018-03-30)
PROC: 10D00Z1 Extraction of Products of Conception, Low, Open Approach (ICD-10-PCS; principal; 2018-03-30 18:49)
DX: O42.02 Full-term premature rupture of membranes, onset of labor within 24 hours of rupture (principal); O41.1230 Chorioamnionitis, third trimester, not applicable or unspecified; O72.1 Other immediate postpartum hemorrhage; O64.0XX0 Obstructed labor due to incomplete rotation of fetal head, not applicable or unspecified; O90.81 Anemia of the puerperium; O77.0 Labor and delivery complicated by meconium in amniotic fluid; O69.9XX0 Labor and delivery complicated by cord complication, unspecified, not applicable or unspecified; Z3A.40 40 weeks gestation of pregnancy; Z37.0 Single live birth
CPT/HCPCS: 36415; 84112; 85025; 85027; 86850; 86900; 86901; 86920

== ENCOUNTER 2018-07-31 15:06 | Emergency (ER) | payer OTHER ==
--- NOTE | 2018-07-31 16:37 | ED Physician Documentation ---
PD HPI CHEST PAIN - Stated complaint Stated Complaint: CHEST TIGHTNING - Chief complaint Chief Complaint: Cardiac - History obtained from History obtained from: Patient - History of Present Illness Timing - onset: Today Timing - details: Abrupt onset, Still present Quality: Tightness, Aching Location: Substernal, Epigastric Radiation: Back Improved by: No: Rest Worsened by: No: Inspiration, Movement Associated symptoms: Nausea, Feeling faint / dizzy. No: Shortness of air, General Weakness, Palpitations Similar symptoms before: Has not had sx before Recently seen: Not recently seen Review of Systems Constitutional: denies: Fever, Chills, Myalgias Nose: denies: Rhinorrhea / runny nose, Congestion Throat: denies: Sore throat Cardiac: denies: Palpitations, Pedal edema, Calf pain Respiratory: denies: Cough GI: reports: Nausea. 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 : None HEENT: None Psych: None Musculoskeletal: None Derm: None - Past Surgical History Past Surgical History: No /FINAL CANOE INSPECTOR: section - Present Medications Home Medications: Ambulatory Orders Medication Instructions Recorded Confirmed Hydrocodone/Acetaminophen [[place] 1 each PO Q6H PRN #15 tablet 07/31/18 5-325 Tablet] Ondansetron Odt [Zofran] 4 mg TL Q6H PRN #10 tablet 07/31/18 RX: Naproxen 500 mg PO BID #20 tablet 07/31/18 - Allergies Allergies/Adverse Reactions: Allergies Allergy/AdvReac Type Severity Reaction Status Date / Time No Known Drug Allergies Allergy Verified 07/31/18 15:11 - Social History Does the pt smoke?: No Smoking Status: Never smoker Does the pt drink ETOH?: Yes Does the pt have substance abuse?: No - Immunizations Immunizations are current?: Yes - POLST Patient has POLST: No PD ED PE NORMAL - Vitals Vital signs reviewed: Yes - General General: Alert and oriented X 3, Well developed/nourished - HEENT HEENT: Moist mucous membranes, Pharynx benign - Neck Neck: Supple, no meningeal sign, No adenopathy - Cardiac Cardiac: RRR, No murmur - Respiratory Respiratory: No respiratory distress, Clear bilaterally - Abdomen Abdomen: Normal bowel sounds, Soft, Non distended, No organomegaly, Other (tender RUQ with guarding but no percussion tenderness. ) - Female Female : Deferred - Rectal Rectal: Deferred - Back Back: No CVA TTP - Derm Derm: Normal color - Extremities Extremities: No deformity, No tenderness to palpate, Normal ROM s pain, No edema, No calf tenderness / cord - Neuro Neuro: Alert and oriented X 3, No motor deficit, Normal speech Results - Vitals Vitals: Oxygen O2 Source Room air - EKG (time done) arrival Rhythm: NSR [place]: Normal Intervals: Normal MA QRS: Normal Ischemia: Normal ST segments. No: ST elevation c/w ischemia, ST depression - Labs Labs: Laboratory Tests 07/31/18 07/31/18 07/31/18 17:45 17:45 17:45 WBC 18.1 H RBC 4.93 Hgb 11.2 L Hct 36.0 L MCV 73.1 L MCH 22.8 L MCHC 31.2 L RDW 16.7 H Plt Count 294 MPV 8.9 Neut # (Auto) 15.3 H Lymph # (Auto) 1.4 L [place] # (Auto) 1.2 H Eos # (Auto) 0.1 Baso # (Auto) 0.1 Absolute Nucleated RBC 0.00 Nucleated RBC % 0.0 Sodium 136 Potassium 3.7 Chloride 102 Carbon Dioxide 25 Anion Gap 9.0 BUN 10 Creatinine 0.5 Estimated GFR (MDRD) 154 Glucose 108 H Calcium 9.2 Total Bilirubin 0.9 AST 80 H ALT 82 H Alkaline Phosphatase 78 Troponin I < 0.04 Total Protein 7.7 Albumin 4.5 Globulin 3.2 Albumin/Globulin Ratio 1.4 Lipase 27 Urine Color Urine Clarity Urine pH Ur Specific [place] Urine Protein Urine Glucose (UA) Urine Ketones Urine Occult Blood Urine Nitrite Urine Bilirubin Urine Urobilinogen Ur Leukocyte Esterase Ur Microscopic Review Urine Culture Comments 07/31/18 19:21 WBC RBC Hgb Hct MCV MCH MCHC RDW Plt Count MPV Neut # (Auto) Lymph # (Auto) [place] # (Auto) Eos # (Auto) Baso # (Auto) Absolute Nucleated RBC Nucleated RBC % Sodium Potassium Chloride Carbon Dioxide Anion Gap BUN Creatinine Estimated GFR (MDRD) Glucose Calcium Total Bilirubin AST ALT Alkaline Phosphatase Troponin I Total Protein Albumin Globulin Albumin/Globulin Ratio Lipase Urine Color YELLOW Urine Clarity CLEAR Urine pH 7.0 Ur Specific [place] 1.015 Urine Protein NEGATIVE Urine Glucose (UA) NEGATIVE Urine Ketones NEGATIVE Urine Occult Blood NEGATIVE Urine Nitrite NEGATIVE Urine Bilirubin NEGATIVE Urine Urobilinogen 0.2 (NORMAL) Ur Leukocyte Esterase NEGATIVE Ur Microscopic Review NOT INDICATED Urine Culture Comments NOT INDICATED - Rads (name of study) chest xray Radiology: Prelim report reviewed (no acute process), See rad report RUQ U/S Radiology: Prelim report reviewed (lng GB 11 cm, but no stones nor wall thickening), See rad report PD MEDICAL DECISION MAKING - ED course Complexity details: reviewed results, re-evaluated patient (feels better with meds here), considered differential (she actually has RUQ tenderness and I think her chest discomfort radiated from that. U/S looked okay. She is post , so consider sludge/biliary colic without stone. ), d/w patient Departure - Departure Disposition: 01 Home, Self Care Clinical Impression: Chest tightness, Upper abdominal pain, Gallbladder colic Condition: Stable Record reviewed to determine appropriate education?: Yes Instructions: ED Abdominal Pain Unkn Cause Follow-Up: Robbin Wall ARNP [Primary Care Provider] - Prescriptions: Hydrocodone/Acetaminophen [[place] 5-325 Tablet] 1 each PO Q6H PRN #15 tablet PRN Reason: Pain RX: Naproxen 500 mg PO BID #20 tablet Ondansetron Odt [Zofran] 4 mg TL Q6H PRN #10 tablet PRN Reason: Nausea / Vomiting Comments: Your EKG and chest x-ray appeared normal. There is no signs of heart or lung process at this time. You did have considerable tenderness in the upper abdomen. The ultrasound of your gallbladder did not have any obvious abnormalities. Blood tests are also good for pancreas and liver. I think you had a gallbladder colic or spasm as the cause of your symptoms. Use ondansetron if needed for nausea. Naproxen anti-inflammatory twice daily for 3-5 days. Add Tylenol or hydrocodone if needed for pains. Recheck if not completely better over the next 1-2 days. Return if worsening again. Follow-up with your primary care if you have repeated episodes. Discharge Date/Time: 07/31/18 21:36
[2018-07-31] MEDS ORDERED: KETOROLAC 15 MG/ML VIAL IVP STA (17:26)
[2018-07-31] MEDS ORDERED: SODIUM CHLORIDE 0.9% 1,000 ML IV ONE (17:26)
[2018-07-31] MEDS ORDERED: ONDANSETRON 4 MG/2 ML VIAL IVP STA (17:26)
[2018-07-31] MEDS ORDERED: MORPHINE 10 MG/ML VIAL IVP STA ×2 (17:27→21:03)
--- NOTE | 2018-07-31 17:55 | XRAY Report ---
Reason: dyspnea Procedure Date: 07/31/2018 Accession Number: [id number] / [id number] Procedure: XR - Chest 2 View X-Ray CPT Code: 33112 FULL RESULT: EXAM: CHEST RADIOGRAPHY EXAM DATE: 07/31/2018 05:33 PM. CLINICAL HISTORY: Dyspnea. COMPARISON: None. TECHNIQUE: 2 views. FINDINGS: Lungs/Pleura: No focal opacities evident. No pleural effusion. No pneumothorax. Normal volumes. Mediastinum: Heart and mediastinal contours are unremarkable. Other: None. IMPRESSION: Negative chest. RADIA
[2018-07-31 18:11] LABS: BASOPHILS # (AUTO) 0.1 10^3/uL (0.0-0.1); BASOPHILS % (AUTO) 0.4 %; EOSINOPHILS # (AUTO) 0.1 10^3/uL (0.0-0.7); EOSINOPHILS % (AUTO) 0.3 %; HGB - HEMOGLOBIN 11.2 g/dL (12.0-16.0); LYMPHOCYTES # (AUTO) 1.4 10^3/uL (1.5-3.5); LYMPHOCYTES % (AUTO) 7.9 %; MEAN CORPUSCULAR HEMOGLOBIN 22.8 pg (27.0-31.0); MEAN CORPUSCULAR HGB CONC 31.2 g/dL (32.0-36.0); MEAN CORPUSCULAR VOLUME 73.1 fL (81.0-99.0); MEAN PLATELET VOLUME 8.9 fL (7.9-10.8); MONOCYTES # (AUTO) 1.2 10^3/uL (0.0-1.0); MONOCYTES % (AUTO) 6.7 %; NEUTROPHILS # (AUTO) 15.3 10^3/uL (1.5-6.6); NEUTROPHILS % (AUTO) 84.7 %; PLT - PLATELET COUNT 294 10^3/uL (130-450); RED BLOOD COUNT 4.93 10^6/uL (4.20-5.40); RED CELL DISTRIBUTION WIDTH 16.7 % (12.0-15.0); WHITE BLOOD COUNT 18.1 x10^3/uL (4.8-10.8)
[2018-07-31 18:22] LABS: ALBUMIN 4.5 g/dL (3.2-5.5); ALBUMIN/GLOBULIN RATIO 1.4 (1.0-2.2); BILIRUBIN,TOTAL 0.9 mg/dL (0.2-1.0); CALCIUM 9.2 mg/dL (8.5-10.3); CREATININE 0.5 mg/dL (0.4-1.0); TOTAL PROTEIN 7.7 g/dL (6.7-8.2)
--- NOTE | 2018-07-31 18:52 | Ultrasound Report ---
Reason: RUQ abd tender, with lower chest pain Procedure Date: 07/31/2018 Accession Number: [id number] / [id number] Procedure: US - Abdomen Limited CPT Code: FULL RESULT: EXAM: ABDOMEN ULTRASOUND LIMITED, RUQ EXAM DATE: 07/31/2018 06:25 PM. CLINICAL HISTORY: RUQ abd tender, with lower chest pain. COMPARISON: None. TECHNIQUE: Real-time scanning was performed with static images obtained. FINDINGS: Liver: Liver parenchyma is echogenic. There is a circumscribed echogenic lesion located centrally within the right lobe of the liver measuring 2.5 x 1.2 x 2.4 cm. There is no intrahepatic biliary dilatation. 19.5 cm. Main portal vein flow: Hepatopetal. Gallbladder: The gallbladder appears elongated measuring 11.1 cm in length. No gallstones or sludge. Gallbladder wall thickness is normal at 1.9 mm. Negative ultrasound Zuluaga's sign. Biliary System: CBD measures 2.8 mm. No intrahepatic or extrahepatic ductal dilatation. Other: None. IMPRESSION: Enlarged, but otherwise normal-appearing gallbladder without gallstones or other ultrasound findings of acute cholecystitis. No biliary dilation. RADIA
[2018-07-31 19:50] LABS: BILIRUBIN,URINE NEGATIVE (NEGATIVE); GLUCOSE, URINE (UA) NEGATIVE (NEGATIVE); KETONES,URINE (UA) NEGATIVE (NEGATIVE); LEUKOCYTE ESTERASE, URINE NEGATIVE (NEGATIVE); NITRITE,URINE NEGATIVE (NEGATIVE); OCCULT BLOOD,URINE NEGATIVE (NEGATIVE); PROTEIN,URINE NEGATIVE (NEGATIVE); UROBILINOGEN,URINE 0.2 (NORMAL) E.U./dL (NORMAL)
[2018-07-31 19:55] LABS: CLARITY,URINE CLEAR (CLEAR)
[2018-07-31] MEDS ORDERED: HYDROcod/ACET 5/325 Prepack 4 PO STA (21:03)
[2018-07-31] MEDS ORDERED: ONDANSETRON ODT 4 MG Prepack 2 TL PRN (21:03)
[2018-07-31 21:13] VITALS: BP 122/81
== END 2018-07-31 21:36 | disposition home or self-care (01) ==
LOC: ED 15:06
DX: R07.89 Other chest pain (principal); R10.11 Right upper quadrant pain; K80.20 Calculus of gallbladder without cholecystitis without obstruction
CPT/HCPCS: 36415; 71046; 76705; 80053; 81001; 81003; 83690; 84484; 85025; 87086; 93005; 96361; 96374; 96375; 96376; 99283; 99284

== ENCOUNTER 2019-05-15 10:10 | Emergency (ER) | payer OTHER ==
--- NOTE | 2019-05-15 10:55 | ED Physician Documentation ---
History of Present Illness - Stated complaint Stated Complaint: DIZZY - Chief complaint Chief Complaint: Neuro - History obtained from History obtained from: Patient, Family - History of Present Illness Timing: How many days ago (4) - Additonal information Additional information: 4 days ago the patient developed acute dizziness that she describes as room spinning she states that she does not feel like she is going to pass out. She has been able to drink fluids she has had a bit of a upper respiratory infection with a cough. She did go to work yesterday but felt that this was a bit of a chore the whole day. She states that the worst day she had was 3 days ago. Review of Systems Constitutional: denies: Fever, Chills, Myalgias, Fatigue Eyes: denies: Decreased vision Ears: denies: Ear pain Nose: reports: Rhinorrhea / runny nose, Congestion Throat: denies: Sore throat Cardiac: denies: Chest pain / pressure, Palpitations Respiratory: reports: Cough. denies: Dyspnea GI: denies: Abdominal Pain, Nausea, Vomiting : denies: Dysuria, Frequency Skin: denies: Rash Musculoskeletal: denies: Neck pain, Back pain, Extremity pain Neurologic: reports: Other (dizziness with head movement.). 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 : None HEENT: None Psych: None Musculoskeletal: None Derm: None - Past Surgical History Past Surgical History: No /CAFETERIA FOOD SERVER: section - Present Medications Home Medications: Ambulatory Orders Medication Instructions Recorded Confirmed Hydrocodone/Acetaminophen [[place] 1 each PO Q6H PRN #15 tablet 07/31/18 5-325 Tablet] Naproxen 500 mg PO BID #20 tablet 07/31/18 Ondansetron Odt [Zofran] 4 mg TL Q6H PRN #10 tablet 07/31/18 Azithromycin [Zithromax] 250 mg PO DAILY #6 tablet 05/15/19 Meclizine HCl 25 mg PO Q6HR PRN #20 tab.chew 05/15/19 - Allergies Allergies/Adverse Reactions: Allergies Allergy/AdvReac Type Severity Reaction Status Date / Time No Known Drug Allergies Allergy Verified 07/31/18 15:11 - Social History Does the pt smoke?: No Smoking Status: Never smoker Does the pt drink ETOH?: Yes Does the pt have substance abuse?: No - Immunizations Immunizations are current?: Yes - POLST Patient has POLST: No PD ED PE NORMAL - Vitals Vital signs reviewed: Yes (normal ) - General General: Alert and oriented X 3, No acute distress, Well developed/nourished - HEENT HEENT: Atraumatic, PERRL, EOMI, Pharynx benign, Dentition benign, Other (There is inflamation specifically to the left TM in the attic. 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, No motor deficit, No sensory deficit, Normal speech Eye Opening: Spontaneous Motor: Obeys Commands Verbal: Oriented GCS Score: 15 - Psych Psych: Normal mood, Normal affect Results - Vitals Vitals: Vital Signs - 24 hr 05/15/19 05/15/19 05/15/19 10:13 10:32 10:34 Temperature 36.4 C L Heart Rate 66 66 Heart Rate [ 85 Sitting] Heart Rate [ 94 Standing] Heart Rate [ 66 Supine] Respiratory 16 18 Rate Blood Pressure 138/88 H 118/75 Blood Pressure 128/85 H [Sitting] Blood Pressure 123/78 [Standing] Blood Pressure 118/75 [Supine] O2 Saturation 100 97 Oxygen O2 Source Room air Oxygen Flow Rate 97 - Labs Labs: Laboratory Tests 05/15/19 10:35 Urine Color YELLOW Urine Clarity CLEAR Urine pH 6.5 Ur Specific [place] 1.020 Urine Protein NEGATIVE Urine Glucose (UA) NEGATIVE Urine Ketones NEGATIVE Urine Occult Blood MODERATE H Urine Nitrite NEGATIVE Urine Bilirubin NEGATIVE Urine Urobilinogen 0.2 (NORMAL) Ur Leukocyte Esterase NEGATIVE Urine RBC 0-5 Urine WBC 0-3 Ur Squamous Epith Cells FEW Squamous Urine Bacteria Rare Ur Microscopic Review INDICATED Urine Culture Comments NOT INDICATED Urine HCG, Qual NEGATIVE PD MEDICAL DECISION MAKING - ED course Complexity details: reviewed old records, considered differential, d/w patient, d/w family ED course: 23-year-old female with acute dizziness appears to have labyrinthitis and on exam she has left otitis. She is administered dexamethasone 10 mg orally and meclizine [address] We will place her on some azithromycin, a course of meclizine and she is dispensed instructions on the Gerardo maneuver. Departure - Departure Disposition: 01 Home, Self Care Clinical Impression: Otitis media Qualifiers: Otitis media type: suppurative Chronicity: acute Laterality: left Recurrence: non-recurrent Spontaneous tympanic membrane rupture: without spontaneous rupture Qualified Code(s): H66.002 - Acute suppurative otitis media without spontaneous rupture of ear drum, left ear Labyrinthitis Qualifiers: Laterality: unspecified laterality Qualified Code(s): H83.09 - Labyrinthitis, unspecified ear Condition: Stable Instructions: ED Otitis Media Acute Adult, ED Labyrinthitis Follow-Up: Robbin Wall ARNP [Primary Care Provider] - Prescriptions: Meclizine HCl 25 mg PO Q6HR PRN #20 tab.chew PRN Reason: Dizziness Azithromycin [Zithromax] 250 mg PO DAILY #6 tablet Forms: Activity restrictions
[2019-05-15] MEDS ORDERED: MECLIZINE 12.5 MG TABLET PO STA (10:56)
[2019-05-15] MEDS ORDERED: DEXAMETHASONE 10 MG/ML VIAL PO STA (10:57)
[2019-05-15] MEDS ORDERED: CHERRY SYRUP 10 ML UDC PO ONE (10:57)
[2019-05-15 11:01] LABS: BILIRUBIN,URINE NEGATIVE (NEGATIVE); GLUCOSE, URINE (UA) NEGATIVE (NEGATIVE); KETONES,URINE (UA) NEGATIVE (NEGATIVE); LEUKOCYTE ESTERASE, URINE NEGATIVE (NEGATIVE); NITRITE,URINE NEGATIVE (NEGATIVE); OCCULT BLOOD,URINE MODERATE (NEGATIVE); PH,URINE 6.5 PH (5.0-7.5); PROTEIN,URINE NEGATIVE (NEGATIVE); UROBILINOGEN,URINE 0.2 (NORMAL) E.U./dL (NORMAL)
[2019-05-15 11:03] LABS: CLARITY,URINE CLEAR (CLEAR); HCG UR QUAL NEGATIVE
[2019-05-15 11:09] LABS: BACTERIA,URINE Rare /HPF (None Seen); RBC,URINE 0-5 /HPF (0-5); SQUAMOUS EPITHELIAL CELL,UR FEW Squamous (<= Few)
[2019-05-15 11:15] VITALS: BP 122/79
== END 2019-05-15 11:18 | disposition home or self-care (01) ==
LOC: ED 10:10
DX: H83.09 Labyrinthitis, unspecified ear (principal); H66.002 Acute suppurative otitis media without spontaneous rupture of ear drum, left ear; J06.9 Acute upper respiratory infection, unspecified
CPT/HCPCS: 81001; 81025; 99283; A9270; 81003; 87086

== ENCOUNTER 2021-12-20 19:09 | Emergency (ER) | payer OTHER ==
[2021-12-20 19:17] VITALS: BP 134/81
--- NOTE | 2021-12-20 19:36 | ED Physician Documentation ---
History of Present Illness - Stated complaint Stated Complaint: TROUBLE BREATHING,CHEST PX - Chief complaint Chief Complaint: MHE - History obtained from History obtained from: Patient - Additonal information Additional information: 26-year-old woman started to feel chest heaviness centrally into the right side of the chest yesterday, otherwise nonradiating. It is worse with exertion. She feels mildly short of breath with it. No history of heart problems. No family history of heart problems. No risk factors. No pedal edema or calf pain. No cough or hemoptysis. Review of Systems Ten Systems: 10 systems reviewed and negative Constitutional: denies: Fever, Chills Cardiac: reports: Chest pain / pressure. denies: Palpitations Respiratory: reports: Dyspnea. 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 - Present Medications Home Medications: Ambulatory Orders Medication Instructions Recorded Confirmed Hydrocodone/Acetaminophen [[place] 1 each PO Q6H PRN #15 tablet 07/31/18 5-325 Tablet] Naproxen 500 mg PO BID #20 tablet 07/31/18 Ondansetron Odt [Zofran] 4 mg TL Q6H PRN #10 tablet 07/31/18 Azithromycin [Zithromax] 250 mg PO DAILY #6 tablet 05/15/19 Meclizine HCl 25 mg PO Q6HR PRN #20 tab.chew 05/15/19 - Allergies Allergies/Adverse Reactions: Allergies Allergy/AdvReac Type Severity Reaction Status Date / Time No Known Drug Allergies Allergy Verified 12/20/21 19:13 - Social History Does the pt smoke?: No Smoking Status: Never smoker Does the pt drink ETOH?: Yes Does the pt have substance abuse?: No - Immunizations Immunizations are current?: Yes - POLST Patient has POLST: No PD ED PE NORMAL - Vitals Vital signs reviewed: Yes - General General: Alert and oriented X 3, No acute distress - HEENT HEENT: PERRL, EOMI, Pharynx benign - Cardiac Cardiac: RRR, No murmur, No gallop - Respiratory Respiratory: No respiratory distress, Clear bilaterally - Abdomen Abdomen: Non tender - Derm Derm: Normal color, Warm and dry - Extremities Extremities: No edema, No calf tenderness / cord - Neuro Neuro: Alert and oriented X 3, Normal speech Results - Vitals Vitals: Vital Signs - 24 hr 12/20/21 12/20/21 19:13 19:17 Temperature 36.5 C 36.5 C Heart Rate 64 64 Respiratory 16 16 Rate Blood Pressure 134/81 H 134/81 H O2 Saturation 99 99 Oxygen O2 Source Room air - EKG (time done) 1915 Rate: Rate (enter#) (64) Rhythm: NSR [place]: Normal Intervals: Normal [place] QRS: Normal Ischemia: Normal ST segments - Labs Labs: Laboratory Tests 12/20/21 12/20/21 12/20/21 19:45 19:45 19:45 WBC 10.6 RBC 4.81 Hgb 13.4 Hct 40.9 MCV 85.0 MCH 27.9 MCHC 32.8 RDW 12.7 Plt Count 279 MPV 10.8 Neut # (Auto) 6.5 Lymph # (Auto) 3.0 [place] # (Auto) 0.9 Eos # (Auto) 0.2 Baso # (Auto) 0.1 Absolute Nucleated RBC 0.00 Nucleated RBC % 0.0 Sodium 139 Potassium 3.9 Chloride 107 Carbon Dioxide 24 Anion Gap 8.0 BUN 13 Creatinine 0.6 Estimated GFR (MDRD) 121 Glucose 117 H Calcium 9.1 Total Bilirubin 0.4 AST 15 ALT 17 Alkaline Phosphatase 50 Troponin I High Sens < 2.3 L Total Protein 7.2 Albumin 4.1 Globulin 3.1 Albumin/Globulin Ratio 1.3 Lipase 37 PD MEDICAL DECISION MAKING - ED course ED course: Heart score of 1, PERC negative. She feels like this is anxiety and did feel better after lorazepam orally. Departure - Departure Disposition: 01 Home, Self Care Clinical Impression: Chest tightness Condition: Good Record reviewed to determine appropriate education?: Yes Instructions: ED Chest Pain Atypical Unkn Cause Comments: Call your doctor to arrange a follow-up appointment, make the next available appointment. In the interim, return anytime if worse or if new symptoms develop.
[2021-12-20] MEDS ORDERED: LORazepam 1 MG TABLET PO STA (19:38)
[2021-12-20 19:51] LABS: BASOPHILS # (AUTO) 0.1 10^3/uL (0.0-0.1); BASOPHILS % (AUTO) 0.5 %; EOSINOPHILS # (AUTO) 0.2 10^3/uL (0.0-0.7); EOSINOPHILS % (AUTO) 1.5 %; HCT - HEMATOCRIT 40.9 % (37.0-47.0); HGB - HEMOGLOBIN 13.4 g/dL (12.0-16.0); LYMPHOCYTES % (AUTO) 28.4 %; MEAN CORPUSCULAR HEMOGLOBIN 27.9 pg (27.0-31.0); MEAN CORPUSCULAR HGB CONC 32.8 g/dL (32.0-36.0); MEAN PLATELET VOLUME 10.8 fL (7.9-10.8); MONOCYTES # (AUTO) 0.9 10^3/uL (0.0-1.0); NEUTROPHILS # (AUTO) 6.5 10^3/uL (1.5-6.6); NEUTROPHILS % (AUTO) 61.5 %; PLT - PLATELET COUNT 279 10^3/uL (130-450); RED BLOOD COUNT 4.81 10^6/uL (4.20-5.40); RED CELL DISTRIBUTION WIDTH 12.7 % (12.0-15.0); WHITE BLOOD COUNT 10.6 x10^3/uL (4.8-10.8)
[2021-12-20 20:05] LABS: ALBUMIN 4.1 g/dL (3.2-5.5); ALBUMIN/GLOBULIN RATIO 1.3 (1.0-2.2); BILIRUBIN,TOTAL 0.4 mg/dL (0.2-1.0); CALCIUM 9.1 mg/dL (8.5-10.3); CREATININE 0.6 mg/dL (0.4-1.0); POTASSIUM 3.9 mmol/L (3.5-5.0); TOTAL PROTEIN 7.2 g/dL (6.7-8.2)
--- NOTE | 2021-12-20 21:16 | XRAY Report ---
PROCEDURE: Chest 1 View X-Ray INDICATIONS: Chest Pain TECHNIQUE: One view of the chest was acquired. COMPARISON: 07/31/2018 FINDINGS: Surgical changes and devices: None. Lungs and pleura: No pleural effusions or pneumothorax. Lungs are clear. Mediastinum: Mediastinal contours appear normal. Heart size is normal. Bones and chest wall: No suspicious bony lesions. Overlying soft tissues appear unremarkable. IMPRESSION: 1. No acute cardiopulmonary disease. Reviewed by: Chris Flowers MD on 12/20/2021 9:15 PM PDT Approved by: Chris Flowers MD on 12/20/2021 9:15 PM PDT Station ID: [id number]
== END 2021-12-20 21:30 | disposition home or self-care (01) ==
LOC: ED 19:09
DX: R07.89 Other chest pain (principal)
CPT/HCPCS: 36415; 71045; 80053; 83690; 84484; 85025; 93005; 99282; 99284; J8499

== ENCOUNTER 2024-01-31 22:42 | Outpatient (CLI) | payer OTHER ==
--- NOTE | 2024-02-01 03:36 | Ultrasound Report ---
PROCEDURE: OB 1st Trimester w/TV INDICATIONS: POSITIVE TEST WITH IUD OUTSIDE/PRIOR DATING DATA: Last menstrual period (LMP): 12/18/2023. LMP-based estimated date of delivery (GREGOR): 09/23/2024. First dating scan (date and location): 01/31/2024. Estimated date of delivery (GREGOR) from first dating scan: 09/24/2024. TECHNIQUE: Real-time scanning was performed of the fetus and maternal pelvic organs, with image documentation. Endovaginal scanning was also performed to better visualize the fetus and maternal ovaries. COMPARISON: None. FINDINGS: Intrauterine gestational sac present. Embryo: Single living intrauterine gestation identified with estimated gestational age of approximat morales 6 weeks and 1 day based off crown-rump length measurement of approximately 0.43 cm. Normal yolk s ac is visualized. Heart rate: 114 bpm. Other: There is a small perigestational hemorrhage measuring 1.8 x 0.5 x 2.0 cm. Measurement variability in dating: +/- 4 weeks by LMP, +/- 7 days by mean sac diameter (use before 6 weeks gestation if crown-rump length not able to be measured), +/- 5 days by crown-rump length (6-12 weeks gestation). Maternal organs: Ovaries demonstrate presence of a right corpus luteal cyst. There is an intrauterin e device visualized within the lower uterine segment of the retroverted uterus. Maternal cervix appea rs long and closed. IMPRESSION: Single living intrauterine gestation with estimated sonographic gestational age of approximately 6 we eks and 1 day based off crown-rump length measurement. Estimated date of delivery is approximately 05/2025. An intrauterine device is visualized within the lower uterine segment. Small perigestational hemorrhage. Reviewed by: Rigo Hyman MD on 02/01/2024 3:34 AM PDT Approved by: Rigo Hyman MD on 02/01/2024 3:34 AM PDT Station ID: [id number]
== END 2024-01-31 22:43 | disposition home or self-care (01) ==
LOC: DI 22:42
PROVIDERS: ATTEND Physician Assistant
DX: O46.91 Antepartum hemorrhage, unspecified, first trimester (principal); Z3A.01 Less than 8 weeks gestation of pregnancy; Z97.5 Presence of (intrauterine) contraceptive device

== ENCOUNTER 2024-02-06 08:00 | Outpatient (CLI) | payer OTHER ==
[2024-02-06 16:37] LABS: BILIRUBIN,URINE NEGATIVE (NEGATIVE); GLUCOSE, URINE (UA) NEGATIVE (NEGATIVE); KETONES,URINE (UA) NEGATIVE (NEGATIVE); LEUKOCYTE ESTERASE, URINE TRACE (NEGATIVE); NITRITE,URINE NEGATIVE (NEGATIVE); OCCULT BLOOD,URINE NEGATIVE (NEGATIVE); PROTEIN,URINE NEGATIVE (NEGATIVE); UROBILINOGEN,URINE 0.2 (NORMAL) E.U./dL (NORMAL)
[2024-02-06 16:46] LABS: CLARITY,URINE HAZY (CLEAR)
[2024-02-06 16:55] LABS: BACTERIA,URINE Many /HPF (None Seen); RBC,URINE 0-5 /HPF (0-5); SQUAMOUS EPITHELIAL CELL,UR MANY Squamous (<= Few)
[2024-02-06 16:56] LABS: CRYSTALS,URINE 0-2 Calcium Oxalate /LPF
== END 2024-02-06 23:59 | disposition home or self-care (01) ==
LOC: LAB.WC 08:00
PROVIDERS: ATTEND Obstetrics & Gynecology
DX: Z34.80 Encounter for supervision of other normal pregnancy, unspecified trimester (principal)
CPT/HCPCS: 81001; 87086

== ENCOUNTER 2024-02-19 13:50 | Outpatient (CLI) | payer OTHER ==
--- NOTE | 2024-02-19 22:48 | Ultrasound Report ---
PROCEDURE: OB 1st Trimester w/TV INDICATIONS: POSITIVE TEST OUTSIDE/PRIOR DATING DATA: Last menstrual period (LMP): 12/18/2023. LMP-based estimated date of delivery (GREGOR): 09/23/2024. First dating scan (date and location): 01/31/2024. Estimated date of delivery (GREGOR) from first dating scan: 09/24/2024. TECHNIQUE: Real-time scanning was performed of the fetus and maternal pelvic organs, with image documentation. Endovaginal scanning was also performed to better visualize the fetus and maternal ovaries. COMPARISON: OB ultrasound on 10/03/2023. FINDINGS: Intrauterine gestational sac present. Embryo: Yolk sac measuring 3.6 mm. Mean gestational sac diameter is 4.35 cm, 9 weeks and 6 days [place]-rump length is 2.34, 9 weeks and 0 days Heart rate: 178 bpm. Cervix is closed. Estimated gestational age by initial ultrasound is 8 weeks and 6 days Composite gestational age today is 9 weeks and 0 days Other: Perigestational hematoma measuring 3.4 x 0.8 x 2.2 cm, previously 1.8 x 0.5 x 2 cm. Interval r emoval of IUD. Measurement variability in dating: +/- 4 weeks by LMP, +/- 7 days by mean sac diamete r (use before 6 weeks gestation if crown-rump length not able to be measured), +/- 5 days by crown-ru mp length (6-12 weeks gestation). Maternal organs: Small right corpus luteal cyst measuring 1.5 x 1.6 x 1.4 cm. Left ovary is not seen . IMPRESSION: 1.Single living intrauterine with estimated gestational age of 9 weeks and 0 days. 2.Interval removal of IUD.] Closed cervix. 3.Perigestational hematoma measuring 3.4 x 0.8 x 2.2 cm, previously 1.8 x 0.5 x 2 cm. Reviewed by: Linda Francisco MD on 02/19/2024 10:47 PM PDT Approved by: Linda Francisco MD on 02/19/2024 10:47 PM PDT Station ID: [id number]
== END 2024-02-19 13:51 | disposition home or self-care (01) ==
LOC: DI 13:50
PROVIDERS: ATTEND Obstetrics & Gynecology
DX: O46.91 Antepartum hemorrhage, unspecified, first trimester (principal); Z3A.09 9 weeks gestation of pregnancy

== ENCOUNTER 2024-03-12 12:55 | Outpatient (CLI) | payer OTHER ==
[2024-03-12 18:02] LABS: BASOPHILS % (AUTO) 0.2 %; EOSINOPHILS # (AUTO) 0.1 10^3/uL (0.0-0.7); EOSINOPHILS % (AUTO) 0.8 %; HCT - HEMATOCRIT 36.8 % (37.0-47.0); HGB - HEMOGLOBIN 12.1 g/dL (12.0-16.0); LYMPHOCYTES # (AUTO) 2.3 10^3/uL (1.5-3.5); LYMPHOCYTES % (AUTO) 19.1 %; MEAN CORPUSCULAR HEMOGLOBIN 27.4 pg (27.0-31.0); MEAN CORPUSCULAR HGB CONC 32.9 g/dL (32.0-36.0); MEAN CORPUSCULAR VOLUME 83.3 fL (81.0-99.0); MEAN PLATELET VOLUME 11.5 fL (7.9-10.8); MONOCYTES # (AUTO) 0.8 10^3/uL (0.0-1.0); MONOCYTES % (AUTO) 6.6 %; NEUTROPHILS # (AUTO) 8.8 10^3/uL (1.5-6.6); NEUTROPHILS % (AUTO) 72.6 %; PLT - PLATELET COUNT 310 10^3/uL (130-450); RED BLOOD COUNT 4.42 10^6/uL (4.20-5.40); RED CELL DISTRIBUTION WIDTH 13.5 % (12.0-15.0); WHITE BLOOD COUNT 12.2 x10^3/uL (4.8-10.8)
== END 2024-03-12 12:56 | disposition home or self-care (01) ==
LOC: LAB.N 12:55
PROVIDERS: ATTEND Obstetrics & Gynecology
DX: Z34.80 Encounter for supervision of other normal pregnancy, unspecified trimester (principal); Z36.89 Encounter for other specified antenatal screening
CPT/HCPCS: 36415; 85025; 86592; 86762; 86787; 86803; 86850; 86900; 86901; 87340; 87389

== ENCOUNTER 2024-03-15 08:00 | Outpatient (CLI) | payer OTHER ==
[2024-03-15 15:06] LABS: CHLAMYDIA TRACHOMATIS DNA NEGATIVE (NEGATIVE); NEISSERIA GONORRHOEAE DNA NEGATIVE (NEGATIVE); TRICHOMONAS VAGINALIS DNA NEGATIVE (NEGATIVE)
== END 2024-03-15 23:58 | disposition home or self-care (01) ==
LOC: LAB.WC 08:00
PROVIDERS: ATTEND Obstetrics & Gynecology
DX: Z11.3 Encounter for screening for infections with a predominantly sexual mode of transmission (principal)
CPT/HCPCS: 87491; 87591; 87661

== ENCOUNTER 2024-04-13 10:37 | Outpatient (CLI) | payer OTHER ==
[2024-04-16 22:07] LABS: AFP VALUE 20.1 ng/mL (.); GEST. AGE ON COLLECTION DATE 16.7 weeks (.); INSULIN DEP DIABETES No (.); MATERNAL AGE AT EDD 29.1 yr (.); MULTIPLE GESTATION No (.); OPEN SPINA BIFIDA RISK 1 IN 10000 (.); RACE Caucasian (.); RESULTS Report (.); TEST RESULTS *Screen Negative* (.); WEIGHT 221 lbs (.)
== END 2024-04-13 10:38 | disposition home or self-care (01) ==
LOC: LAB.N 10:37
PROVIDERS: ATTEND Obstetrics & Gynecology
DX: O34.211 Maternal care for low transverse scar from previous cesarean delivery (principal)
CPT/HCPCS: 36415; 82105

== ENCOUNTER 2024-04-13 11:30 | Outpatient (CLI) | payer OTHER ==
[2024-04-13 12:29] LABS: ALBUMIN 3.7 g/dL (3.2-5.5); ALBUMIN/GLOBULIN RATIO 1.2 (1.0-2.2); BILIRUBIN,TOTAL 0.6 mg/dL (0.2-1.0); CALCIUM 9.5 mg/dL (8.5-10.3); CREATININE 0.4 mg/dL (0.6-1.3); POTASSIUM 3.8 mmol/L (3.5-4.5); TOTAL PROTEIN 6.7 g/dL (6.4-8.9)
[2024-04-13 12:32] LABS: ESTIMATED AVERAGE GLUCOSE 88 mg/dL (70-100); HEMOGLOBIN A1c% 4.7 % (4.27-6.07)
== END 2024-04-13 11:31 | disposition home or self-care (01) ==
LOC: LAB 11:30
PROVIDERS: ATTEND Obstetrics & Gynecology
DX: Z36.89 Encounter for other specified antenatal screening (principal); O34.211 Maternal care for low transverse scar from previous cesarean delivery
CPT/HCPCS: 36415; 80053; 82105; 83036; 87491; 87591; 87661

== ENCOUNTER 2024-09-18 06:02 | Inpatient (IN) ==
[2024-09-18] MEDS: LACTATED RINGERS 1,000 ML IV SCH ×2 (07:06→10:29)
--- NOTE | 2024-09-18 07:24 | HISTORY & PHYSICAL EXAMINATION ---
Admit History Visit Reason Visit Reason: Other (Scheduled delivery) Smoking Status: Never smoker Other Maternal History Other Maternal History: HPI: Shira is a 29 yo at 39w2d who is admitted for scheduled delivery.. She is feeling well this morning. Denies contractions, LOF, VB. Good FM. She confirmed desire again for sterilization with bilateral salpingectomy. monitoring form, copied from record: LMP: 12/18/2023 GREGOR by LMP: 09/23/2024 US: 01/31/24@ 9+0 GREGOR 09/24/24 FINAL: 09/23/2024 c/w LMP - H/o CS @ [facility], for arrest of descent at 8cm, LOP position, 9lb8oz after presenting with SROM, pitocin augmentation. - H/o PPH - 1600cc at time of CS for uterine atony - BMI 42 - IUD removed 1st Blood type: O+ Antibody: Negative CBC: H/H 12.1/36.8 plt 310 RUB:immune VZV:NON immune HBsAg: Negative HepC: NR RPR/AB-EIA:NR HIV: NR PAP: 2022 GC/CT:03/14 negative HSV: denies Genetic testing: [id number] with SCA, AFP negative Covid:06/27/24 Flu: 06/27/24 RSV- 08/07 FAS: WNL. Profile and cardiac views not well visualized secondary to position. Spine suboptimal visualization grossly intact. Placenta: posterior, without previa Cord: 3VC YON: 13.6cm, WNL EFW: 435g (68.5%tile) 50gm OGCT:95 TDAP:06/27/24 RPR: NR Breast Pump: has one 3rd trimester CBC: 10.8/33/261 GBS: Negative PE: Vitals signs reviewed in Centricity Gen: NAD Chest: non labored respirations Abd: gravid, non tender. Ext: no LE edema NST: Time 0624 -0738 AM FHTs: 130s bpm baseline, + accel, - decel, mod variability [place]: few Reactive, Cat 1 Labs: CBC reviewed, T&S pending A/P: Shira is a 29 yo at 39w2d with history of delivery, desire permanent sterilization: Plan to proceed with repeat delivery with bilateral salpingectomy. Consents previously reviewed and signed in clinic. Oli Guzman MD HPI Current : Vital Signs Temperature 98.2 F 09/18/24 06:33 Pulse Rate 100 09/18/24 06:30 Respiratory Rate 17 09/18/24 06:30 Blood Pressure 118/85 09/18/24 06:30 O2 Saturation 98 09/18/24 06:30 Meds/Allgy Home Medications Ambulatory Orders Medication Instructions Recorded Confirmed vitamins no.159-iron tab PO 05/28/24 09/12/24 fumarate 28 mg-folic acid 800 mcg tablet ( Vitamin) ferrous sulfate 325 mg (65 mg 325 mg PO BID #120 tabs 07/10/24 09/18/24 iron) tablet Allergies Allergies Allergy/AdvReac Type Severity Reaction Status Date / Time No Known Drug Allergies Allergy Verified 09/12/24 13:05 [facility] Surgical History Surgical History (Updated 07/26/24 @ 09:29 by Tess Pruett MA) H/O abdominal surgery abdominal mass H/O: 2017 Family History Family History (Updated 07/26/24 @ 09:30 by Tess Pruett MA) Paternal grandmother Colon cancer Mother Depressed Father Alcoholism Social History Social History Smoking Status: Never smoker Do you dip or chew tobacco?: No Do you vape?: No Relationship: Spouse History of Abuse: No Frequency: Occasional POLST Patient has POLST: No Physical Abdominal Exam Vital Signs: Temp Pulse Resp BP Pulse Ox 98.2 F 100 17 118/85 98 09/18/24 06:33 09/18/24 06:30 09/18/24 06:30 09/18/24 06:30 09/18/24 06:30 Plan for Labor Plan For Labor I expect patient to be DC'd or transferred within 96 hours.: Yes Conclusion/Plan Lab Results Lab results reviewed: Yes 09/18/24 07:00
[2024-09-18 07:30] LABS: BASOPHILS % (AUTO) 0.3 %; EOSINOPHILS # (AUTO) 0.1 10^3/uL (0.0-0.7); HGB - HEMOGLOBIN 11.4 g/dL (12.0-16.0); LYMPHOCYTES # (AUTO) 2.1 10^3/uL (1.5-3.5); LYMPHOCYTES % (AUTO) 17.1 %; MEAN CORPUSCULAR HEMOGLOBIN 24.3 pg (27.0-31.0); MEAN CORPUSCULAR HGB CONC 31.7 g/dL (32.0-36.0); MEAN CORPUSCULAR VOLUME 76.8 fL (81.0-99.0); MEAN PLATELET VOLUME 11.8 fL (7.9-10.8); MONOCYTES # (AUTO) 0.9 10^3/uL (0.0-1.0); MONOCYTES % (AUTO) 7.6 %; NEUTROPHILS # (AUTO) 9.1 10^3/uL (1.5-6.6); NEUTROPHILS % (AUTO) 73.2 %; PLT - PLATELET COUNT 231 10^3/uL (130-450); RED BLOOD COUNT 4.69 10^6/uL (4.20-5.40); RED CELL DISTRIBUTION WIDTH 17.2 % (12.0-15.0); WHITE BLOOD COUNT 12.4 x10^3/uL (4.8-10.8)
[2024-09-18] MEDS ORDERED: TRANEXAMIC ACID IN NACL 0 MG/0 ML BAG IV ONE (07:41)
[2024-09-18] MEDS ORDERED: ONDANSETRON 4 MG/2 ML VIAL ONE (07:55)
[2024-09-18] MEDS ORDERED: PHENYLEPHRINE HCL 0.5 MG/5 ML AMPULE ONE (07:55)
[2024-09-18] MEDS: ACETAMINOPHEN 500 MG TABLET PO ONE (08:16)
[2024-09-18] MEDS ORDERED: ONDANSETRON 4 MG/2 ML VIAL IVP PRN (08:31)
[2024-09-18] MEDS ORDERED: ATROPINE ABBOJECT 1 MG/10 ML SYRINGE IVP PRN (08:31)
[2024-09-18] MEDS ORDERED: HYDROmorphone 0.5 MG/0.5 ML SYRINGE IVP PRN (08:31)
[2024-09-18] MEDS ORDERED: ePHEDrine 50 MG/ML VIAL IVP PRN (08:31)
[2024-09-18] MEDS ORDERED: NALOXONE 0.4 MG/ML VIAL IVP PRN ×2 (08:31→10:36)
[2024-09-18] MEDS ORDERED: METOCLOPRAMIDE 10 MG/2 ML VIAL IVP PRN (08:31)
[2024-09-18] MEDS ORDERED: fentaNYL 100 MCG/2 ML VIAL IVP PRN (08:31)
[2024-09-18] MEDS ORDERED: MORPHINE 2 MG/ML CARPUJECT IVP PRN (08:31)
--- NOTE | 2024-09-18 08:31 | ANESTHESIA PROCEDURE NOTE ---
Pre-Anesthesia VS, & Labs Diagnosis Surgical Diagnosis:: previous c/s Procedure Procedure: repeat c/s Vitals Vital Signs: Temp Pulse Resp BP Pulse Ox 36.8 C 100 17 118/85 98 09/18/24 06:33 09/18/24 06:30 09/18/24 06:30 09/18/24 06:30 09/18/24 06:30 NPO NPO: >8 hours Is Patient ?: Yes Lab Results Current Lab Results: Laboratory Tests 09/18/24 07:00: WBC 12.4 H, RBC 4.69, Hgb 11.4 L, Hct 36.0 L, MCV 76.8 L, MCH 24.3 L, MCHC 31.7 L, RDW 17.2 H, Plt Count 231, MPV 11.8 H, Neut # (Auto) 9.1 H, Lymph # (Auto) 2.1, [place] # (Auto) 0.9, Eos # (Auto) 0.1, Baso # (Auto) 0.0, Absolute Nucleated RBC 0.00, Nucleated RBC % 0.0 Lab results reviewed: Yes 09/18/24 07:00 Meds/Allgy Home Medications Ambulatory Orders Medication Instructions Recorded Confirmed vitamins no.159-iron tab PO 05/28/24 09/12/24 fumarate 28 mg-folic acid 800 mcg tablet ( Vitamin) ferrous sulfate 325 mg (65 mg 325 mg PO BID #120 tabs 07/10/24 09/18/24 iron) tablet Allergies Allergies Allergy/AdvReac Type Severity Reaction Status Date / Time No Known Drug Allergies Allergy Verified 09/12/24 13:05 [facility] Surgical History Surgical History (Updated 07/26/24 @ 09:29 by Tess Pruett MA) H/O abdominal surgery abdominal mass H/O: 2017 Family History Family History (Updated 07/26/24 @ 09:30 by Tess Pruett MA) Paternal grandmother Colon cancer Mother Depressed Father Alcoholism Social History Social History Smoking Status: Never smoker Do you dip or chew tobacco?: No Do you vape?: No Relationship: Spouse History of Abuse: No Frequency: Occasional POLST Patient has POLST: No Anesthesia Exam (Expanded) Exam General: Alert, Oriented x3 and Cooperative Dental: WNL Mouth Openin Fingerbreadth Neck Mobility: Normal Mallampati classification: II Thyromental Distance: 4-6 cm Respiratory: Lungs clear and Normal breath sounds Cardiovascular: Regular rate Neurological: Normal speech Mental/Cognitive Status: Alert/Oriented X3 and Normal for patient Cognitive Status: Within normal limits Plan Plan Anesthesia Type: Spinal and Transverse Abdominis Plane (TAP) Block Regional Block: Per Surgeon's request for Post Op pain control Consent for Procedure(s) Verified and Reviewed: Yes Code Status: Attempt Resuscitation ASA Classification ASA classification: 2-Mild systemic disease Is this case an emergency?: No
[2024-09-18] MEDS ORDERED: OXYTOCIN/SODIUM CHLORIDE 500 ML IV ONE ×2 (08:39→10:09)
[2024-09-18] MEDS ORDERED: ePHEDrine 50 MG/ML VIAL IVP ONE (08:53)
[2024-09-18] MEDS ORDERED: ROPIVACAINE 0.5% PF 20 ML VIAL ONE (09:15)
[2024-09-18] MEDS ORDERED: SODIUM CHLORIDE 0.9% 10 ML VIAL IVP ONE (09:15)
[2024-09-18] MEDS ORDERED: KETOROLAC 30 MG/ML VIAL ONE (09:45)
[2024-09-18] MEDS ORDERED: fentaNYL 100 MCG/2 ML VIAL ONE ×2 (09:45→14:45)
[2024-09-18] MEDS: OXYTOCIN/SODIUM CHLORIDE 500 ML IV PRN (10:29)
[2024-09-18] MEDS ORDERED: NIFEdipine 10 MG CAPSULE PO PRN (10:36)
[2024-09-18] MEDS ORDERED: LABETALOL 20 MG/4 ML SYRINGE IVP PRN ×3 (10:36)
[2024-09-18] MEDS ORDERED: HYDROCORTISONE 1% CREAM 28 GM TUBE TOP PRN (10:36)
[2024-09-18] MEDS ORDERED: hydrALAZINE INJ 20 MG/ML VIAL IVP PRN ×2 (10:36)
[2024-09-18] MEDS: ceFAZolin (2G) 2 GM in SODIUM CHLORIDE 0.9% MINIBAG 100 ML IV ONE (10:55)
--- NOTE | 2024-09-18 11:09 | OPERATIVE REPORT ---
Operative Report General Admit Date: 09/18/24 Procedure Data: Operation Date: 09/18/24 08:30 Proposed Procedures p Section(Not Applicable) - Oli Guzman MD s Bilateral Tubal Ligation(Not Applicable) - Oli Guzman MD Actual Procedures p Repeat Section and Bilateral Salpingectomies(Not Applicable) - Oli Guzman MD Pre-Op Diagnosis: PREVIOUS SECTION, DESIRES STERILIZATION s Bilateral Salpingectomies(Bilateral) - Oli Guzman MD Anesthesia Type Spinal Case Staff Anesthesia Provider: Bola Eaton Anesthesia Provider: Nicci Caballero Assisting Provider: Giana Tidwell Case Times Into Recovery: 09/18/24 10:29 Procedure Start: 09/18/24 09:10 Procedure End: 09/18/24 10:15 Time out: 09/18/24 09:09 Other Other Information/Narrative: DATE OF PROCEDURE: 09/18/24 Surgeon: Oli Guzman MD Customer Success Intern: ARCELIA Garcia's help was necessary as an assistant to the ceo for the entire procedure for adequate retraction and visualization, to shorten operative time, to assist with delivery of the , and to lower the risk of surgical injury Pre-Op Diagnosis: history of delivery, desires permanent sterilization Post-Op Diagnosis: Same Procedures: Repeat low transverse delivery, bilateral salpingectomy Findings: Normal appearing uterus and ovaries, right tube adhered to right ovary, tubes otherwise normal in appearance. Infant in cephalic presentation. Clear amniotic fluid. Specimens: bilateral fallopian tubes Anesthesia Technique: spinal Estimated Blood Loss: 800cc Blood Replacement: none Fluid Replacement: 1L Drains: arenas, drained 150cc clear yellow urine Complications: none Condition: stable Procedure in Detail: The patient was taken to the operating room where spinal anesthesia was placed. Arenas catheter was placed. She was prepared and draped in the normal sterile fashion in the dorsal supine position with a leftward tilt. 2g Ancef was given for prophylaxis. A pfannenstiel skin incision was made with the scalpel and was carried down through the subcutaneous tissue in the midline. The remainder of the subcutaneous tissue was then bluntly. The fascia was incised in the midline and the incision was extended sharply with Mayos. The superior aspect of the fascial incision was grasped with two Lauro clamps, elevated, and the underlying rectus muscles dissected off both bluntly and with the Mayos. The rectus muscles were in the midline, and the underlying peritoneum entered sharply with metzenbaum scissors. The peritoneal incision was extended superiorly and inferiorly with good visualization of the bladder. The bladder blade was inserted. The lower uterine segment was incised in a transverse fashion with the scalpel. The uterine incision was extended bluntly. The bladder blade was removed and the infants head was brought to the hysterotomy. Fundal pressure applied and the delivered atraumatically. The cord was clamped and cut after 60 sec and the was handed off to the waiting provider. The placenta was removed with gentle uterine massage and cord traction. The uterus was exteriorized and cleared of all clots and debris with moist laparotomy sponges. The uterine incision was repaired with O Vicryl in a running fashion. A second layer of 0 monocryl was used in an imbricating fashion for additional hemostasis. Several additional figure of eight stitches were also required. Hemostasis obtained. The bilateral fallopian tubes were each transected from the mesosalpinx and uterus using the ligasure device. Hemostasis noted. The posterior cul-de-sac was cleared of all clots and debris with laparotomy sponges, and the uterus was returned to the abdomen. The gutters were cleared of all clots. Excellent hemostasis of the hysterotomy was again noted. The rectus muscles were carefully examined and several oozing areas cauterized with the bovie. The fascia was reapproximated with 0 PDS in a running fashion. The subcutaneous tissues was irrigated. The subcutaneous tissue was reapproximated with 2-0 Vicryl, and the skin was closed with 4-0 monocryl. The patient tolerated the procedure well. Sponge, lap, needle, and instrument counts were correct at the end of the procedure. The patient was taken to the recovery room in stable. Oli Guzman MD
--- NOTE | 2024-09-18 11:12 | ANESTHESIA POST OP EVALUATION ---
Anesthesia Post Eval Post Anesthesia Eval Vitals: Last Vital Signs Temp 36.6 C 09/18/24 10:47 Pulse 74 09/18/24 10:47 Resp 18 09/18/24 10:47 BP 110/72 09/18/24 10:47 Pulse Ox 98 09/18/24 10:47 CV Function Including HR & BP: Stable Pain Control: Satisfactory Nausea & Vomiting: Negative Mental Status: Baseline Respiratory Status: Airway Patent Hydration Status: Satisfactory Anesthesia Complications: None
[2024-09-18] MEDS: CITRIC ACID/SODIUM CITRATE 15 ML UDC PO ONE (11:22)
[2024-09-18] MEDS: oxyCODONE 5 MG TABLET PO PRN ×2 (12:20→13:12)
--- NOTE | 2024-09-18 13:03 | PHARMACY PROGRESS NOTE ---
Best Possible Medication History Admit Date and Time: 09/18/24 [id number] Home Medications Medication Instructions Recorded Confirmed Type vitamins no.159-iron 1 tab PO DAILY 05/28/24 09/18/24 History fumarate 28 mg-folic acid 800 mcg tablet ( Vitamin) ferrous sulfate 325 mg (65 mg 325 mg PO BID #120 tabs 07/10/24 09/18/24 Rx iron) tablet Processed by: Nursing Medications reviewed in ED?: No Medication History completed: Yes Patient Interview: Completed Secondary Source(s): Previous admit records [facility] Statement: As the person ultimately responsible for medication therapy, providers are able to order a medication from an existing home medication list in [facility] via the "Reconcile Routine" prior to Confirmation of that medication by youth accommodation support worker. Such practice is discouraged except when the physician, in their clinical judgment, deems that a medical need exists for a medication without regard to previous use.
[2024-09-18] MEDS: GABAPENTIN 300 MG CAPSULE PO PRN (13:13)
[2024-09-18] MEDS: KETOROLAC 30 MG/ML VIAL IVP SCH ×2 (13:56→15:40)
[2024-09-18] MEDS: TRANEXAMIC ACID 1,000 MG in SODIUM CHLORIDE 0.9% 100ML 100 ML IV STA (14:40)
[2024-09-18] MEDS ORDERED: TRANEXAMIC ACID IN NACL 1,000 MG/100 ML BAG IV ONE (14:42)
[2024-09-18] MEDS ORDERED: METHYLERGONOVINE 0.2 MG/ML VIAL ONE (14:45)
[2024-09-18] MEDS: fentaNYL 100 MCG/2 ML VIAL IVP PRN (14:48)
[2024-09-18] MEDS: METHYLERGONOVINE 0.2 MG/ML VIAL IM ONE (14:48)
--- NOTE | 2024-09-18 15:33 | MISCELLANEOUS PROVIDER NOTE ---
Miscellaneous Provider Note - Note: Shira was seen at bedside. RN reported increased bleeding after delivery, 1325cc in recovery (+800cc in OR). She has received TXA, IM methergine, and is receiving an additional bag of pitocin. Shira initially felt dizzy and with low BP, but this has resolved with fluid bolus. At bedside, uterus is firm and with minimal bleeding now. Will check CBC stat now, complete 500cc fluid bolus, and T&C x 2 units. Will monitor closely. Oli Guzman MD
[2024-09-18 15:44] LABS: HCT - HEMATOCRIT 27.6 % (37.0-47.0); HGB - HEMOGLOBIN 8.9 g/dL (12.0-16.0); MEAN CORPUSCULAR HEMOGLOBIN 24.7 pg (27.0-31.0); MEAN CORPUSCULAR HGB CONC 32.2 g/dL (32.0-36.0); MEAN CORPUSCULAR VOLUME 76.7 fL (81.0-99.0); MEAN PLATELET VOLUME 11.3 fL (7.9-10.8); RED BLOOD COUNT 3.6 10^6/uL (4.20-5.40); RED CELL DISTRIBUTION WIDTH 17.2 % (12.0-15.0); WHITE BLOOD COUNT 17.2 x10^3/uL (4.8-10.8)
[2024-09-18] MEDS: ACETAMINOPHEN 500 MG TABLET PO SCH (16:30)
[2024-09-18] MEDS: IRON DEXTRAN 1,000 MG in SODIUM CHLORIDE 0.9% 250 ML IV ONE (18:32)
[2024-09-18] MEDS: MAGNESIUM HYDROXIDE 2,400 MG/30 ML UDC PO PRN (21:33)
[2024-09-18] MEDS: DOCUSATE SODIUM 100 MG CAPSULE PO SCH (21:34)
[2024-09-18] MEDS: SIMETHICONE CHEW 80 MG TABLET PO PRN (21:34)
[2024-09-19] MEDS: IBUPROFEN 600 MG TABLET PO SCH (03:45)
[2024-09-19 06:45] LABS: HCT - HEMATOCRIT 26.4 % (37.0-47.0); HGB - HEMOGLOBIN 8.3 g/dL (12.0-16.0); MEAN CORPUSCULAR HEMOGLOBIN 24.6 pg (27.0-31.0); MEAN CORPUSCULAR HGB CONC 31.4 g/dL (32.0-36.0); MEAN CORPUSCULAR VOLUME 78.3 fL (81.0-99.0); MEAN PLATELET VOLUME 11.6 fL (7.9-10.8); RED BLOOD COUNT 3.37 10^6/uL (4.20-5.40); RED CELL DISTRIBUTION WIDTH 17.5 % (12.0-15.0); WHITE BLOOD COUNT 12.6 x10^3/uL (4.8-10.8)
[2024-09-19] MEDS ORDERED: VARICELLA VACCINE LIVE/PF 1,350 UNIT/0.5 ML VIAL SUBQ ONE (15:34)
[2024-09-19 19:23] VITALS: O2SAT 98
--- NOTE | 2024-09-19 23:03 | PROVIDER PROGRESS NOTE ---
Subjective Prog Note Date Prog Note Date: 09/19/24 Prog Note Time: 11:45 Subjective Subjective: pateint is doing well. up and walking around but then gets tired. no dizziness. feeding going well so far. IV iron last night. Current Medications Current Medications Current Medications: Current Medications Generic Name Dose Route Start Last Admin Trade Name Freq PRN Reason Stop Dose Admin Acetaminophen 1,000 mg 09/18/24 11:00 09/19/24 15:58 Acetaminophen 500 Mg Tablet PO 1,000 mg Q8H SERENITY Administration Docusate Sodium 200 mg 09/18/24 21:00 09/19/24 21:54 Docusate Sodium 100 Mg Capsule PO 200 mg BID SERENITY Administration Gabapentin 300 mg 09/18/24 13:05 09/18/24 13:13 Gabapentin 300 Mg Capsule PO 300 mg TID PRN Administration PAIN >8 Hydralazine HCl 10 mg 09/18/24 10:36 Hydralazine Inj 20 Mg/Ml Vial IVP .ONCE PRN SBP> or= 160 OR DBP> or= 110 Protocol Hydralazine HCl 5 - 20 mg 09/18/24 10:36 Hydralazine Inj 20 Mg/Ml Vial IVP Q20M PRN SBP> or= 160 OR DBP> or= 110 Protocol Hydrocortisone 1 applic 09/18/24 10:36 Hydrocortisone 1% Cream 28 Gm Tube TOP QID PRN Hemorrhoids Oxytocin/Sodium Chloride 500 mls @ 999 mls/hr 09/18/24 10:36 09/18/24 15:08 Pitocin/Sodium Chloride IV Infused PRN PRN Titration POST- HEMORR PREVENTION Protocol 999 MILLIUNIT/MIN Ibuprofen 600 mg 09/19/24 03:30 09/19/24 21:53 Ibuprofen 600 Mg Tablet PO 600 mg Q6H SERENITY Administration Labetalol HCl 20 - 40 mg 09/18/24 10:36 Labetalol 20 Mg/4 Ml Syringe IVP Q10M PRN SBP> or= 160 OR DBP> or= 110 Protocol Labetalol HCl 20 mg 09/18/24 10:36 Labetalol 20 Mg/4 Ml Syringe IVP .ONCE PRN SBP> or= 160 OR DBP> or= 110 Protocol Labetalol HCl 20 - 80 mg 09/18/24 10:36 Labetalol 20 Mg/4 Ml Syringe IVP Q10M PRN SBP> or= 160 OR DBP> or= 110 Protocol Magnesium Hydroxide 2,400 mg 09/18/24 10:36 09/18/24 21:33 Magnesium Hydroxide 2,400 Mg/30 Ml Udc PO 2,400 mg Q8HR PRN Administration Constipation Naloxone HCl 0.4 mg 09/18/24 10:36 Naloxone 0.4 Mg/Ml Vial IVP .ONCE PRN Opioid overdose Nifedipine 10 - 20 mg 09/18/24 10:36 Nifedipine 10 Mg Capsule PO Q20M PRN SBP> or= 160 OR DBP> or= 110 Protocol Oxycodone HCl 5 mg 09/18/24 10:36 09/19/24 03:45 Oxycodone 5 Mg Tablet PO 5 mg Q4HR PRN Administration Moderate Pain (Level 4-6) Simethicone 80 mg 09/18/24 10:36 09/19/24 03:46 Simethicone Chew 80 Mg Tablet PO 80 mg TID PRN Administration Gas Objective Vital Signs/Intake & Output Reviewed Vital Signs: Yes Vital Signs: Vital Signs x48h Temp Pulse Resp BP Pulse Ox 09/19/24 19:22 36.8 C 84 18 114/68 98 09/19/24 17:31 37.1 C 92 15 106/56 L Intake & Output: Intake & Output 09/16/24 09/17/24 09/18/24 09/19/24 23:59 23:59 23:59 23:59 Intake Total 6000 / 6000 Output Total 1750 / 1750 275 / 275 Balance 4250 / 4250 -275 / -275 Weight (kg) 217 lb 2.485 oz Objective General Appearance: positive No acute distress Respiratory: positive No respiratory distress Abdomen: positive Other (minimally tender. wound well under pannus. left dressing on, can remove in shower later. bandage is dry.) Skin: positive Color nml Extremities: positive Non-tender and No pedal edema Lab Results 09/19/24 06:27 Other Labs: Lab Results x24hrs 09/19/24 Range/Units 06:27 WBC 12.6 H (4.8-10.8) x10^3/uL RBC 3.37 L (4.20-5.40) 10^6/uL Hgb 8.3 L (12.0-16.0) g/dL Hct 26.4 L (37.0-47.0) % MCV 78.3 L (81.0-99.0) fL MCH 24.6 L (27.0-31.0) pg MCHC 31.4 L (32.0-36.0) g/dL RDW 17.5 H (12.0-15.0) % Plt Count 185 (130-450) 10^3/uL MPV 11.6 H (7.9-10.8) fL Assessment/Plan Problem List (1) Delivery by section: Impression: recovering well. no concerns. should be ready for discharge tomorrow. (2) Acute postoperative anemia due to greater than expected blood loss: Impression: bleeding after her c section from delayed pp hemorrhage. stable now. did also have chronic anemia in , just worse now. does not need transfusion as vitals are stable. did get iv iron last evening. 1 gm dextran.
[2024-09-20 04:45] VITALS: TEMP 98.2
--- NOTE | 2024-09-20 07:44 | Discharge Summary ---
Discharge Summary Admit Date: 09/18/24 Discharge Date: 09/20/24 Discharging Provider: Angel Flaherty MD DIAGNOSES Admission Diagnoses: Repeat low-transverse section 39 weeks gestation Discharge Diagnoses with Status of Each Condition: Status post repeat low-transverse section Delivery of live sanchez HPI History of Present Illness: Subjective Patient reports she is doing well. Lochia appropriate. Denies heavy bleeding. Ambulating. Pelvic and abdominal pain well-controlled. Tolerating oral intake. Diet: Regular. Voiding without difficulty. Passing flatus. Denies BM. Patient is bonding with baby in room Breast feeding going well. Denies feeling lightheaded, dizzy or excessively fatigued. Objective General: Alert, oriented, no apparent distress. Cardiovascular: Irregularly irregular heartbeat, occasional PACs. Lungs: No increased work of breathing. Abdomen: Uterus firm. Below umbilicus. No guarding or rebound. Extremities: No pain on palpation. No cords palpated. Distal pulses intact. Incision: Bandage in place. HOSPITAL COURSE Hospital Course: Patient was admitted for repeat low-transverse section at 39 weeks, and was unremarkable. She did however have a hemorrhage later in the day, but did not require blood transfusions. She did get an iron transfusion. She had intermittent tachycardia after delivery, but was asymptomatic. On exam prior to discharge, she was noted to have an irregular heartbeat, so EKG was obtained which showed PACs, but a normal rate. Can follow-up outpatient has not acute issue. Patient was counseled on hemorrhage, infection, depression, cardiac signs. Follow-up with provider in 1 to 2 weeks. ALLERGIES Allergies Allergy/AdvReac Type Severity Reaction Status Date / Time No Known Drug Allergies Allergy Verified 09/12/24 13:05 MEDICATIONS Ambulatory Orders Medication Instructions Recorded Confirmed vitamins no.159-iron 1 tab PO DAILY 05/28/24 09/18/24 fumarate 28 mg-folic acid 800 mcg tablet ( Vitamin) ferrous sulfate 325 mg (65 mg 325 mg PO BID #120 tabs 07/10/24 09/18/24 iron) tablet acetaminophen 500 mg tablet 1,000 mg (2 x 500 mg) PO Q8H 10 09/20/24 days #60 tabs docusate sodium 100 mg capsule 200 mg (2 x 100 mg) PO BID 30 days 09/20/24 #120 caps ibuprofen 600 mg tablet 600 mg PO Q6H 10 days #40 tabs 09/20/24 oxycodone 5 mg tablet 5 mg PO Q4HR PRN Moderate Pain 09/20/24 (Level 4-6) 3 days #15 tabs LABS 09/19/24 06:27 FOLLOW UP Follow Up: With [facility] women's care in 1 to 2 weeks TIME SPENT Time Spent in Discharge (Minutes): 50 Discharge Plan Discharge Patient Disposition: Home, Self Care Prescriptions: New acetaminophen 500 mg Tablet 1,000 mg PO Q8H 10 Days Qty: 60 0RF docusate sodium 100 mg Capsule 200 mg PO BID 30 Days Qty: 120 0RF ibuprofen 600 mg Tablet 600 mg PO Q6H 10 Days Qty: 40 0RF oxycodone 5 mg Tablet 5 mg PO Q4HR PRN (Reason: Moderate Pain (Level 4-6)) 3 Days Qty: 15 0RF Continued ferrous sulfate 325 mg (65 mg iron) tablet 325 mg PO BID Qty: 120 3RF Vitamin 28 mg iron- 800 mcg tablet 1 tab PO DAILY Activity Restrictions: Additional Comments Diet: Regular Print Language: Ukrainian Patient Instructions: Surgery Anesthesia After, Depression , C Section Dc Follow-up Care: Oli Guzman MD [Provider Admit Priv/Credential] - 1 Week
[2024-09-20 09:08] VITALS: BP 111/91
[2024-09-20] MEDS: VARICELLA VACCINE LIVE/PF 1,350 UNIT/0.5 ML VIAL SUBQ ONE (10:35)
--- NOTE | 2024-09-20 12:31 | Labor Flowsheet ---
Labor Flowsheet Datetime Report Generated by CPN: 09/20/2024 12:30 Datetime: 09/18/2024 07:30 UTERINE ACTIVITY Monitor Mode: External Frequency (min): no ctx Pattern: Normal: <= 5 Contractions in 10 Minutes Resting Tone (Palpate): Relaxed ASSESSMENT A Monitor Mode: External US FHR Baseline Rate : 130 Variability: Moderate 6-25 bpm Accelerations: 15X15 Decelerations: None Category: Category I
== END 2024-09-20 12:30 | disposition home or self-care (01) | DRG 784 ==
LOC: FBP 06:02
PROVIDERS: ADMIT Obstetrics & Gynecology; ATTEND Obstetrics & Gynecology
DX: D64.89 Other specified anemias; R00.0 Tachycardia, unspecified; D62 Acute posthemorrhagic anemia; O90.89 Other complications of the puerperium, not elsewhere classified; O99.02 Anemia complicating childbirth; Z30.2 Encounter for sterilization; O99.43 Diseases of the circulatory system complicating the puerperium; R03.1 Nonspecific low blood-pressure reading; O34.211 Maternal care for low transverse scar from previous cesarean delivery; Z87.59 Personal history of other complications of pregnancy, childbirth and the puerperium; Z3A.39 39 weeks gestation of pregnancy; Z37.0 Single live birth; O72.2 Delayed and secondary postpartum hemorrhage; O90.81 Anemia of the puerperium; I49.1 Atrial premature depolarization